=== PATIENT | female | born 1985 | race Caucasian/White ===

== ENCOUNTER 2020-01-04 21:15 | Emergency (ER) | payer BC, SELFPAY ==
--- NOTE | ~2020-01-04 | XR_ITS ---
EXAMINATION: XR chest 2V DATE: 01/04/2020 22:08 INDICATION: Left-sided chest pain TECHNIQUE: PA and lateral views of the chest are obtained. COMPARISON: 01/05/2019 FINDINGS: The lungs are free of acute opacities. There is no pleural effusion or pneumothorax. The ca rdiomediastinal silhouette is normal. The visualized bones and soft tissues are unremarkable. IMPRESSION: 1. No acute cardiopulmonary abnormality. Reviewed, dictated and finalized at location A.
[2020-01-04 21:21] VITALS: BP 123/73; PULSE 66; RESP 14; TEMP 36.8; O2SAT 100
--- NOTE | 2020-01-04 21:25 | ECG_ITS ---
Measurements Intervals [place] Rate: 73 P: 56 LA: 168 QRS: 48 QRSD: 80 T: 58 QT: 380 QTc: 421 Interpretive Statements SINUS RHYTHM NORMAL ECG Electronically Signed On 01-05-2020 6:57:07 CDT by Jose Hooper D.O.
[2020-01-04 21:37] LABS: Basophils Absolute Auto 0.1 K/mm3 (0.0-0.1); Basophils Percent Auto 0.6 % (0.2-1.2); Eosinophils Absolute Auto 0.1 K/mm3 (0-0.3); Eosinophils Percent Auto 1.1 % (0-4.4); Hematocrit 36.9 % (37.0-47.0); Hemoglobin 12.4 g/dL (12.0-15.0); Immature Granulocyte Absolute 0.01 K/mm3 (0.00-0.031); Immature Granulocyte Percent A 0.1 % (0-0.5); Lymphocytes Absolute Auto 3.23 K/mm3 (0.9-3.2); Mean Corpuscular HGB Conc 33.6 g/dl (32-36); Mean Corpuscular Hemoglobin 31.5 pg (26-34); Mean Corpuscular Volume 93.7 fl (80-100); Mean Platelet Volume 10.2 fl (7.4-10.4); Monocytes Absolute Auto 0.7 K/mm3 (0.1-0.6); Monocytes Percent Auto 8.6 % (2.6-8.5); Neutrophils Absolute Auto 4.4 K/mm3 (1.3-6.7); Neutrophils Percent Auto 51.6 % (45.5-73.1); Platelet Count Result 286 k/mm3 (150-375); Red Blood Count 3.94 M/mm3 (4.2-5.4); Red Cell Distribution Width 11.9 % (11.5-14.5); White Blood Count 8.5 K/mm3 (4.5-10.0)
[2020-01-04 21:47] LABS: Prothrombin Time 12.5 Seconds (11.1-14.7)
[2020-01-04 21:48] LABS: Partial Thromboplastin Time 27.8 SECONDS (22.3-36.8)
[2020-01-04 21:49] LABS: Blood Urea Nitrogen 9 mg/dL (7-17); Calcium 9.7 mg/dL (8.4-10.2); Carbon Dioxide 24 mmol/L (22-30); Chloride 102 mmol/L (98-107); Estimated CRCL calculation 66 ml/min; Estimated Glomerular Filt Rate > 60; Glucose 92 mg/dL (65-105); Potassium 3.8 mmol/L (3.4-5.0); Sodium 137 mmol/L (137-145)
[2020-01-04 22:01] LABS: Troponin I < 0.012 ng/mL (0.000-0.034)
[2020-01-04 22:35] VITALS: BP 120/86; PULSE 69; PULSE 72; RESP 18; O2SAT 100
[2020-01-04] MEDS: ASPIRIN 81 MG CHEWABLE TABLET 324 MG PO (22:37)
[2020-01-04 23:01] LABS: D Dimer 0.27 ug/mL (<0.48)
[2020-01-05] VITALS: BP 103/74; PULSE 60; RESP 18; O2SAT 100
--- NOTE | 2020-01-05 00:31 | ED.GENADULT ---
HPI - General Adult General Chief complaint: Chest Pain Stated complaint: L sided cp Time Seen by Provider: 01/04/20 22:15 History of Present Illness HPI narrative: Patient is a 34-year-old female who presents the ER with left-sided chest pain. It is the lateral pectoralis radiating into her axilla and down her medial left upper extremity. Ongoing for 2 days but worse today. Patient has been getting this over the last year typically right before she starts her menstrual period. She did start her period today. Patient reports that she also returned from a vacation to [place] 1 week ago. She is had no lower extremity cramping or swelling. No history of PE. Patient reports she has been seen for these symptoms in the past without diagnosis. Related Data Home Medications Medication Instructions Recorded Confirmed naltrexone 2 mg PO DAILY 01/04/20 01/04/20 Allergies Allergy/AdvReac Type Severity Reaction Status Date / Time No Known Allergies Allergy Verified 01/04/20 21:24 Review of Systems Review of Systems: All systems reviewed & are unremarkable except as noted in HPI and below Constitutional: Constitutional: Denies chills, Denies fever(s) and Denies weakness ENT: Denies nasal congestion and Denies sore throat Cardiovascular: Cardiovascular: Reports chest pain, Denies rapid heart rate and Reports radiating jaw, neck or arm pain Respiratory: Respiratory: Denies cough, Denies dyspnea and Denies wheezing Gastrointestinal: Gastrointestinal: Denies abdominal pain, Reports diarrhea (One episode today), Denies nausea and Denies vomiting Musculoskeletal: Musculoskeletal: Denies back pain, Denies joint swelling and Denies muscle cramps Neurologic: Denies dizziness, Reports focal weakness and Reports numbness (Occasional tingling in the arm with this pain) PMFSH Past Medical History Medical History (Updated 01/05/20 @ 00:37 by Carmine Bateman MD) Interstitial cystitis Kidney stone Surgical History Surgical History (Updated 01/05/20 @ 00:34 by Carmine Bateman MD) History of bladder surgery Social History Social History (Updated 01/05/20 @ 00:34 by Carmine Bateman MD) Smoking status: Never smoker Exam Narrative: Exam Narrative: GENERAL: Well-appearing, well-nourished, and in no acute distress. HEAD: Normocephalic, atraumatic. EYES: PERRL and EOMI. CHEST: Clear to auscultation. No respiratory distress. Mild discomfort over the left upper chest superior to the breast. No palpable spasm. HEART: Regular rate and rhythm. No murmur heard. Normal peripheral pulses. ABDOMEN: Soft, nontender, nondistended. EXTREMITIES: Normal range of motion. No edema. SKIN: Warm, dry, no rash. NEURO: No focal deficits. Alert and oriented x3. Course Course Emergency Course: Unremarkable evaluation. D-dimer negative. Suspect musculoskeletal discomfort. Discussed with patient that she could have a component of thoracic outlet syndrome and to see her PCP. Also recommend that patient start taking anti-inflammatories 3 to 4 days before her period prior to her discomfort starting to see if this helps remedy the situation. Vital Signs Vital signs: Vital Signs Temperature 98.3 F 01/04/20 21:21 Pulse Rate 66 01/04/20 21:21 Respiratory Rate 14 01/04/20 21:21 Blood Pressure 123/73 01/04/20 21:21 Pulse Oximetry 100 01/04/20 21:21 Temperature 98.3 F 01/04/20 21:21 Pulse Rate 72 01/04/20 22:35 Respiratory Rate 18 01/04/20 22:35 Blood Pressure 120/86 01/04/20 22:35 Pulse Oximetry 100 01/04/20 22:35 Medical Decision Making Vital Signs Vital Signs: Vital Signs Temperature 98.3 F 01/04/20 21:21 Pulse Rate 66 01/04/20 21:21 Respiratory Rate 14 01/04/20 21:21 Blood Pressure 123/73 01/04/20 21:21 Pulse Oximetry 100 01/04/20 21:21 Temperature 98.3 F 01/04/20 21:21 Pulse Rate 72 01/04/20 22:35 Respiratory Rate 18 01/04/20 22:35 Blood Pressure
[2020-01-05 00:45] VITALS: BP 106/69; PULSE 67; RESP 20; O2SAT 100
[2020-01-05 00:55] LABS: Troponin I < 0.012 ng/mL (0.000-0.034)
== END 2020-01-05 01:00 | disposition home or self-care (01) ==
PROVIDERS: Emergency Provider Emergency Medicine
DX: R07.89 Other chest pain (principal); Z87.442 Personal history of urinary calculi
CPT/HCPCS: 36415; 71046; 80048; 84484; 85025; 85380; 85610; 85730; 93005; 99284; A9270

== ENCOUNTER → 2020-02-26 10:18 | Outpatient (CLI) | payer BC, SELFPAY ==
--- NOTE | ~2020-02-26 | US_ITS ---
US breast LT complete DATE: 02/26/2020 10:50 INDICATION: Mastodynia TECHNIQUE: Real time and color flow imaging of the complete left breast COMPARISON: None FINDINGS: There is an up to 2 cm left axillary lymph node. There is an up to 9 mm left axillary lymp h node. These lymph nodes appear benign. 9:00 4 cm from nipple: 2 x 3.7 mm circumscribed hypoechoic sold mass without internal vascularity IMPRESSION: BIRADS Category 3: Probably benign RECOMMENDATION: 6 month limited left breast ultrasound follow up Reviewed, dictated and finalized at Location A. Reviewed, dictated and finalized at location A.
== END ==
DX: N64.4 Mastodynia (principal); R92.8 Other abnormal and inconclusive findings on diagnostic imaging of breast
CPT/HCPCS: 76641

== ENCOUNTER 2020-03-13 08:48 | Outpatient (CLI) | payer BC, SELFPAY ==
--- NOTE | 2020-03-13 | ECHO_ITS ---
Patient Info Name: Angelika Gibbons Age: 34 years : 1985 Gender: Female Ht: 62 in Wt: 110 lbs BSA: 1.48 m2 HR: 62 bpm BP: 97 / 67 mmHg Heart Rhythm: Sinus Rhythm Exam Date: 03/13/2020 9:12 AM Exam Location: [facility] Patient Status: Outpatient Admit Date: 03/13/2020 Staff Ordering Physician: PHYSICIAN NOT ON STAFF, NONSTAFF [employer] Trapper: Gracia Patel RDCS Attending Provider: PHYSICIAN NOT ON STAFF, NONSTAFF Exam Type: CA echo doppler color flow Study Info Indications R06.02 - Shortness of breath R07.9 - Chest pain, unspecified Summary 1. Left ventricular chamber dimension is normal. 2. Left ventricular systolic function is normal, estimated at 60-65%. 3. There is no increased left ventricular wall thickness. 4. The left ventricular diastolic function is normal. 5. There is mild tricuspid valve regurgitation. 6. There is mild pulmonic regurgitation. Left Ventricle Left ventricular chamber dimension is normal. Left ventricular systolic function is normal, estimated at 60-65%. There is no increased left ventricular wall thickness. The left ventricular diastolic function is normal. Right Ventricle Right ventricular chamber dimension is normal. Right ventricular systolic function is normal. Left Atria Left atrial chamber dimension is normal. Right Atria Right atrial chamber dimension is normal. Atrial Septum Intact interatrial septum visualized by color flow imaging. Aortic Valve The aortic valve is trileaflet. There is mild aortic valve sclerosis. There is no aortic valve stenosis. There is trace aortic valve regurgitation. Pulmonic Valve The pulmonic valve is normal. There is no pulmonic valve stenosis. There is mild pulmonic regurgitation. Mitral Valve The mitral valve has normal leaflets. There is no mitral valve stenosis. There is trace mitral valve regurgitation. Tricuspid Valve The tricuspid valve leaflets are normal. There is no significant tricuspid valve stenosis. There is mild tricuspid valve regurgitation. No pulmonary hypertension, estimated pulmonary arterial systolic pressure is 27 mmHg. Pericardium/Pleural The pericardium appears normal. There is no pericardial effusion. Inferior Vena Cava Normal inferior vena cava with <50% collapse upon inspiration consistent with elevated right atrial pressure, 10 mmHg. Aorta The aortic root size at the sinus of Valsalva is normal. The prox ascending aorta size is normal. Left Ventricular Outflow Tract Name Value Normal LVOT 2D LVOT Diameter 2.0 cm LVOT Doppler LVOT Peak Gradient 5 mmHg LVOT Mean Gradient 3 mmHg LVOT VTI 21 cm LVOT VTI/AV VTI Ratio 1.0 LVOT Stroke Volume 64 ml LVOT CO 5.0 l/min LVOT CI 3.4 l/min/m2 Mitral Valve Name Value Normal ------
== END 2020-03-13 08:49 | disposition home or self-care (01) ==
DX: R06.02 Shortness of breath (principal)
CPT/HCPCS: 93306

== ENCOUNTER 2022-08-18 14:20 | Emergency (ER) | payer OTHER, SELFPAY ==
--- NOTE | ~2022-08-18 | XR_ITS ---
EXAMINATION: XR abdomen/kub 1V DATE: 08/18/2022 14:52 INDICATION: Right flank pain. Hematuria. TECHNIQUE: A supine view of the abdomen on 2 radiographs was obtained. COMPARISON: None. FINDINGS: There are no dilated loops of bowel. There is a moderate volume of stool in the colon. IMPRESSION: 1. No visible urolithiasis. Reviewed, dictated and finalized at location A. ERSMITH HELPER IMPRESSION: 1. No visible urolithiasis.
[2022-08-18 14:29] VITALS: BP 113/71; PULSE 83; RESP 16; TEMP 36.5; O2SAT 100
--- NOTE | 2022-08-18 15:12 | ED.BACK ---
HPI - Back Pain/Injury General Chief Complaint: Back Pain/Injury Stated Complaint: R LOWER BACK PAIN Time Seen by Provider: 08/18/22 14:35 Source: patient Mode of arrival: ambulatory Limitations: no limitations History of Present Illness HPI Narrative: 36-year-old female presents with complaint of right flank pain starting yesterday. States 2-3 days ago she started a new workout routine. Was unsure if back pain could be related to that. Today she started having pain with urination and pressure. Took a bath yesterday due to back pain. Has history of interstitial cystitis and has a history of getting urinary tract infections after taking baths. Started her period yesterday. No concerns for . History of kidney stones several years ago. Afebrile. No other complaints today. All systems reviewed and negative except as noted above. Related Data Home Medications Medication Instructions Recorded Confirmed escitalopram oxalate 10 mg tablet 10 mg PO DAILY 03/26/21 (Lexapro) Allergies Allergy/AdvReac Type Severity Reaction Status Date / Time No Known Allergies Allergy Verified 08/18/22 14:32 Review of Systems Review of Systems: CONSTITUTIONAL: Denies fever, chills, or sweats. EYES: Denies visual changes, redness, or discharge. ENT: Denies rhinorrhea, congestion, sore throat, or otalgia. CARDIOVASCULAR: Denies chest pain, palpitations, or edema. RESPIRATORY: Denies cough or dyspnea. GASTROINTESTINAL: Denies abdominal pain, nausea, vomiting, or diarrhea. GENITOURINARY: Reports dysuria urgency, pressure, right flank pain. Denies hematuria. SKIN: Denies rash or itching. MUSCULOSKELETAL: Denies back pain, joint pain, or myalgia. NEUROLOGIC: Denies headache, numbness, or weakness. PSYCHIATRIC: Denies anxiety or depression. All other systems reviewed are negative, except as documented in HPI. FORMERLY [facility], [facility] Past Medical History Medical History Interstitial cystitis Kidney stone Surgical History Surgical History History of bladder surgery Family History Family History Father Thyroid disorder Sibling Depression Grandparent Alcoholism Grandparent Alcoholism Cancer Social History Social History Smoking status: Never smoker Alcohol intake: never Substance use: never Substance use type: does not use Comments At time of signature, agree with nursing past medical, surgical, social and family history. There is no relevant family history pertinent to the presenting complaint. Exam Narrative: GENERAL: This is a well-nourished, well-developed patient, in no apparent distress. HEAD: normocephalic, atraumatic. EYES: PERRL. Sclera clear/white. Vision is grossly intact. EARS: External ears normal NOSE: External nose normal NECK: Neck supple, non-tender without lymphadenopathy, masses or thyromegaly. CARDIOVASCULAR: Regular rate and rhythm without murmurs, gallops, or rubs. RESPIRATORY: Clear to auscultation. Breath sounds equal bilaterally. No wheezes, rales, or rhonchi. SKIN: warm, Dry, intact with no suspicious lesions or rash, good texture and turgor. NEURO: awake, alert, and oriented to person, place and time. There were no obvious focal neurologic abnormalities. EXTREMITIES: No joint tenderness, effusion, or edema noted. BACK: Nontender without deformity. No CVA tenderness. Course Course Level of Care: Express Care Visit Vital Signs Vital signs: Vital Signs Temperature 36.5 C 08/18/22 14:29 Pulse Rate 83 08/18/22 14:29 Respiratory Rate 16 08/18/22 14:29 Blood Pressure 113/71 08/18/22 14:29 Pulse Oximetry 100 08/18/22 14:29 Temperature 36.5 C 08/18/22 14:29 Pulse Rate 83 08/18/22 14:29 Respiratory Rate 16 08/18/22 14:29 Bl
== END 2022-08-18 15:10 | disposition home or self-care (01) ==
PROVIDERS: Emergency Provider Nurse Practitioner Family
DX: R30.0 Dysuria (principal); R10.9 Unspecified abdominal pain
CPT/HCPCS: 74018; 81003; 87086; 99213; G0463

== ENCOUNTER 2022-08-24 17:29 | Emergency (ER) | payer OTHER, SELFPAY ==
--- NOTE | ~2022-08-24 | CT_ITS ---
EXAMINATION: CT abdomen pelvis w con DATE: 08/24/2022 21:44 INDICATION: obstipation TECHNIQUE: Computed tomography (CT) of the abdomen and pelvis was performed with 100 mL Omnipaque-350 intravenous contrast. Automated exposure control and iterative reconstruction technique were employe d. The dose-length product was 189.60 mGy-cm. COMPARISON: None. FINDINGS: Lower thorax: Unremarkable Liver: Simple right lobe cyst. Biliary/Gallbladder: Gallbladder is normal. No bile duct dilation. Pancreas: No mass or duct dilation. Spleen: Normal. Adrenals:No mass. Kidneys: Subcentimeter bilateral hypodensities, too small to characterize but most likely representin g cysts. Bilateral punctate nonobstructing calculi. No hydronephrosis. GI tract: Distal esophageal and gastric wall edema. No small or large bowel dilation. Appendix not vi sualized. Mesentery/Peritoneum: No ascites, mass, or free air. Retroperitoneum: No mass. Pelvis: Pelvic organs are within normal limits. Soft Tissues: Soft tissues and body wall unremarkable. Bones: No acute osseous finding. IMPRESSION: Esophagitis/gastritis. Otherwise no acute abdominal pelvic process detected. Reviewed, dictated and finalized at location K. V BLOCK SAW OPERATOR
[2022-08-24 17:35] VITALS: BP 133/73; PULSE 91; RESP 20; TEMP 36.3; O2SAT 100
[2022-08-24 19:05] LABS: Appearance Urine Slightly Cloudy (Clear); Bilirubin Urine Negative (Negative); Blood Urine Trace-intact (Negative); Color Urine Yellow (Yellow); Glucose Urine UA Negative (Negative); Ketones Urine Trace mg/dL (Negative); Leukocyte Esterase Ur Trace LEU/UL (Negative); Nitrate Urine Negative (Negative); Protein Urine Negative (Negative); Urobilinogen Urine 0.2 mg/dL (<2.0)
[2022-08-24] MEDS: KETOROLAC 30 MG/ML VIAL (*BKC) IV PUSH (19:05)
--- NOTE | 2022-08-24 19:13 | ED.BACK ---
HPI - Back Pain/Injury General Chief Complaint: Back Pain/Injury Stated Complaint: LOWER BACK PAIN X1WK Time Seen by Provider: 08/24/22 18:18 History of Present Illness HPI Narrative: This is a 36-year-old female with past medical history of interstitial cystitis presents with chief complaint of lower back pain x1 week. She was seen in urgent care a week ago for the same and had a negative UA and a negative KUB. She has additional complaints of constipation and states this has been present for the past week as well. Denies any specific back injury. She does endorse doing some new workouts at the gym. Denies any bowel or bladder dysfunction. Denies any saddle anesthesia. No red flag back symptoms or signs. She has additional concerns with constipation and obstipation for about a week. She states that the only time she is able to have a bowel movement is when she uses her suppository. Denies any abdominal pain, fevers, chills, vomiting. Related Data Home Medications Medication Instructions Recorded Confirmed escitalopram oxalate 10 mg tablet 10 mg PO DAILY 03/26/21 (Lexapro) Allergies Allergy/AdvReac Type Severity Reaction Status Date / Time No Known Allergies Allergy Verified 08/18/22 14:32 Review of Systems Review of Systems: CONSTITUTIONAL: Denies fever, chills, or sweats. EYES: Denies visual changes, redness, or discharge. ENT: Denies rhinorrhea, congestion, sore throat, or otalgia. CARDIOVASCULAR: Denies chest pain, palpitations, or edema. RESPIRATORY: Denies cough or dyspnea. GASTROINTESTINAL: Endorses constipation. Denies abdominal pain, nausea, vomiting, or diarrhea. GENITOURINARY: Denies dysuria or hematuria. SKIN: Denies rash or itching. MUSCULOSKELETAL: Endorses low back pain. Denies joint pain, or myalgia. NEUROLOGIC: Denies headache, numbness, dizziness, or weakness. PSYCHIATRIC: Denies anxiety or depression. [facility] Past Medical History Medical History Interstitial cystitis Kidney stone Surgical History Surgical History History of bladder surgery Family History Family History Father Thyroid disorder Sibling Depression Grandparent Alcoholism Grandparent Alcoholism Cancer Social History Social History Smoking status: Never smoker Alcohol intake: never Substance use: never Substance use type: does not use Exam Narrative: GENERAL: Well-appearing, well-nourished, and in no acute distress. HEAD: Normocephalic, atraumatic. EYES: PERRLA and EOMI. ENT: Nares clear, no rhinorrhea or epistaxis. Mucous membranes moist. Oropharynx without tonsillar hypertrophy exudate or other lesions. NECK: Supple. No adenopathy or masses. CHEST: No respiratory distress. Clear to auscultation. No wheezes rales or rhonchi HEART: Regular rate and rhythm. No murmur heard. Normal peripheral pulses. ABDOMEN: Soft, nontender, nondistended, normal active bowel sounds. EXTREMITIES: Normal range of motion. No edema. Flexion of the spine reproduces by pain SKIN: Warm, dry, no rash. NEURO: Alert and oriented x3. No focal deficits. 5 out of 5 strength and sensation in upper and lower extremities PSYCH: Normal mood and affect. Course Course Emergency Course: 2199: Patient pain improved greatly Vital Signs Vital signs: Vital Signs Temperature 97.4 F L 08/24/22 17:35 Pulse Rate 91 08/24/22 17:35 Respiratory Rate 20 08/24/22 17:35 Blood Pressure 133/73 08/24/22 17:35 Pulse Oximetry 100 08/24/22 17:35 Oxygen Delivery Room Air 08/24/22 17:35 Temperature 97.2 F L 08/24/22 21:50 Pulse Rate 79 08/24/22 21:50 Respiratory Rate 18 08/24/22 21:50 Blood Pressure 107/63 08/24/22 22:02 Pulse Oximetry 100 08/24/22 21:50 Oxygen Delivery Ro
[2022-08-24 19:16] LABS: Bacteria Urine Trace /hpf; Mucus Urine Rare /lpf; RBC Urine 0-2 /hpf (0-2); Squamous Epithelial Cell Urine Many /hpf (Few)
[2022-08-24 19:17] LABS: Basophils Percent Auto 0.3 % (0.2-1.2); Eosinophils Absolute Auto 0.1 K/mm3 (0-0.3); Hematocrit 37.9 % (37.0-47.0); Hemoglobin 12.7 g/dL (12.0-15.0); Immature Granulocyte Absolute 0.02 K/mm3 (0.00-0.031); Immature Granulocyte Percent A 0.2 % (0-0.5); Lymphocytes Absolute Auto 2.33 K/mm3 (0.9-3.2); Lymphocytes Percent Auto 26.1 % (18.3-44.2); Mean Corpuscular HGB Conc 33.5 g/dl (32-36); Mean Corpuscular Volume 92.4 fl (80-100); Mean Platelet Volume 10.5 fl (7.4-10.4); Monocytes Absolute Auto 0.6 K/mm3 (0.1-0.6); Monocytes Percent Auto 6.4 % (2.6-8.5); Neutrophils Absolute Auto 5.9 K/mm3 (1.3-6.7); Platelet Count Result 304 k/mm3 (150-375); White Blood Count 8.9 K/mm3 (4.5-10.0)
[2022-08-24 19:25] LABS: Add Urine Microscopic? YES
[2022-08-24 21:18] LABS: Alanine Aminotransferase 15 U/L (6-35); Albumin Level 5.2 g/dL (3.5-5.1); Alkaline Phosphatase 87 U/L (38-126); Anion Gap 11 mmol/L (8-16); Aspartate Amino Transferase 21 U/L (14-36); Bilirubin,Total 0.5 mg/dL (0.2-1.3); Blood Urea Nitrogen 10 mg/dL (7-17); Calcium 8.8 mg/dL (8.4-10.2); Carbon Dioxide 25 mmol/L (22-30); Chloride 103 mmol/L (98-107); Estimated CRCL calculation 86 ml/min; Estimated Glomerular Filt Rate > 60; Glucose 78 mg/dL (65-110); Potassium 3.8 mmol/L (3.4-5.0); Sodium 139 mmol/L (137-145)
[2022-08-24 21:50] VITALS: BP 94/48; PULSE 79; RESP 18; TEMP 36.2; O2SAT 100
[2022-08-24 22:02] VITALS: BP 107/63
== END 2022-08-24 22:30 | disposition home or self-care (01) ==
PROVIDERS: Emergency Provider Physician Assistant
DX: M54.50 Low back pain, unspecified (principal); K59.00 Constipation, unspecified; N30.10 Interstitial cystitis (chronic) without hematuria; Z87.442 Personal history of urinary calculi
CPT/HCPCS: 36415; 74177; 80053; 81001; 81025; 85025; 96374; 99284; J1885; Q9967

== ENCOUNTER 2022-09-27 11:54 | Emergency (ER) | payer OTHER, SELFPAY ==
[2022-09-27 12:02] VITALS: BP 112/74; PULSE 83; RESP 16; TEMP 36.9; O2SAT 100
--- NOTE | 2022-09-27 12:09 | ED.URI ---
HPI - URI/Sore Throat General Chief Complaint: Upper Respiratory Infection Stated Complaint: sore throat Time Seen by Provider: 09/27/22 12:09 History of Present Illness HPI Narrative: 37 y/o female presented for c/o sore throat for about 2 weeks. At the onset she was prescribed amox by pcp, due to known exposure to strep. States it caused severe GI upset therefore she stopped the abx after about 7 days. States the past few days the pain has worsened. Also with mild sinus congestion and drainage. Not taking anything for symptoms. Denies difficulty maintaining secretions, sob, wheezing, n/v/d/f/c. Related Data Home Medications Medication Instructions Recorded Confirmed escitalopram oxalate 10 mg tablet 10 mg PO DAILY 03/26/21 (Lexapro) Allergies Allergy/AdvReac Type Severity Reaction Status Date / Time No Known Allergies Allergy Verified 08/18/22 14:32 Review of Systems Review of Systems: CONSTITUTIONAL: Denies body aches, fever, chills, or sweats. EYES: Denies visual changes, redness, or discharge. ENT: Denies dysphonia, otalgia. CARDIOVASCULAR: Denies chest pain, palpitations, or edema. RESPIRATORY: Denies dyspnea. GASTROINTESTINAL: Denies abdominal pain, nausea, vomiting, or diarrhea. SKIN: Denies rash, itching, or wounds. MUSCULOSKELETAL: Denies back pain, joint pain, or myalgia. NEUROLOGIC: Denies headache PMFSH Past Medical History Medical History Interstitial cystitis Kidney stone Surgical History Surgical History History of bladder surgery Family History Family History Father Thyroid disorder Sibling Depression Grandparent Alcoholism Grandparent Alcoholism Cancer Social History Social History Smoking status: Never smoker Alcohol intake: never Substance use: never Substance use type: does not use Exam Narrative: GENERAL: mildly Ill-appearing, no acute distress. EYES: conjunctivae clear ENT: Mucous membranes moist. TM pearly alvarado with normal light reflex bilaterally; no tragal tenderness. Oropharynx erythematous without lesions. Tonsils enlarged 2+ without exudate. No drooling, no hoarseness, no trismus, uvula midline. No tripod positioning, hot potato voice, or soft palate swelling. NECK: Supple. No lymphadenopathy CHEST: Clear to auscultation, breath sounds equal. No respiratory distress, speaks in full sentences. HEART: Regular rate and rhythm. No murmur heard. SKIN: Warm, dry, no rash. NEURO: Alert and oriented x3. Course Course Emergency Course: Patient is aware of diagnosis, understands and agrees to treatment plan. Anticipatory guidance given. Patient agrees to follow-up as directed and is aware of reasons to seek care at the emergency department. Portions of this record may have been created with voice recognition software Level of Care: Express Care Visit Vital Signs Vital signs: Vital Signs Temperature 98.4 F 09/27/22 12:02 Pulse Rate 83 09/27/22 12:02 Respiratory Rate 16 09/27/22 12:02 Blood Pressure 112/74 09/27/22 12:02 Pulse Oximetry 100 09/27/22 12:02 Temperature 98.4 F 09/27/22 12:02 Pulse Rate 83 09/27/22 12:02 Respiratory Rate 16 09/27/22 12:02 Blood Pressure 112/74 09/27/22 12:02 Pulse Oximetry 100 09/27/22 12:02 MDM - URI/Sore Throat MDM Narrative Medical decision making narrative: strep result reviewed with pt.will send Zpack as pt could not tolerate Amox. Advise supportive treatments. Patient is appropriate for outpatient treatment and follow-up. Differential Diagnosis Differential diagnosis: Likely upper respiratory infection, viral infection and pharyngitis Lab Data Labs: Strep Screen Positive Group A Strep
== END 2022-09-27 12:18 | disposition home or self-care (01) ==
PROVIDERS: Emergency Provider Nurse Practitioner Family
DX: J02.0 Streptococcal pharyngitis (principal)
CPT/HCPCS: 87880; 99213; G0463

== ENCOUNTER 2022-10-14 18:21 | Emergency (ER) | payer OTHER, SELFPAY ==
[2022-10-14 18:31] VITALS: BP 109/73; PULSE 81; RESP 16; TEMP 36.8; O2SAT 100
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
--- NOTE | 2022-10-14 18:44 | ECG_ITS ---
Measurements Intervals [place] Rate: 71 P: 46 AR: 145 QRS: 66 QRSD: 82 T: 71 QT: 367 QTc: 399 Interpretive Statements SINUS RHYTHM COMPARED TO ECG 01/04/2020 21:28:33 NO SIGNIFICANT CHANGES Electronically Signed On 10-15-2022 10:36:23 CDT by Laurel Aguilar M.D.
--- NOTE | 2022-10-14 19:03 | PC.NURSE ---
REPORT CALLED TO LEONARDO CLARKE AT [facility], PT IS ATTEMPTING TO CONTACT A RIDE FOR TRANSPORT TO ER. C COLLAR WAS APPLIED.
[2022-10-14 19:11] VITALS: RESP 18; O2SAT 99
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
== END 2022-10-14 19:51 | disposition short-term general hospital (02) ==
PROVIDERS: Emergency Provider Nurse Practitioner
DX: M54.2 Cervicalgia (principal); V49.40XA Driver injured in collision with unspecified motor vehicles in traffic accident, initial encounter
CPT/HCPCS: 87081; 87880; 93005; 99213; G0463; L0140

== ENCOUNTER 2022-10-14 20:10 | Emergency (ER) | payer OTHER, SELFPAY ==
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
[2022-10-14 20:12] VITALS: BP 122/84; PULSE 70; RESP 18; TEMP 36.4; O2SAT 100
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
[2022-10-14 22:42] VITALS: BP 109/76; PULSE 78; RESP 16; O2SAT 99
[2022-10-14] MEDS: KETOROLAC 30 MG/ML VIAL (*BKC) IM (22:46)
== END 2022-10-14 22:54 | disposition home or self-care (01) ==
LOC: ANHED 22:40
PROVIDERS: Emergency Provider Physician Assistant
DX: S19.9XXA Unspecified injury of neck, initial encounter (principal); S09.90XA Unspecified injury of head, initial encounter; V49.40XA Driver injured in collision with unspecified motor vehicles in traffic accident, initial encounter; N30.10 Interstitial cystitis (chronic) without hematuria; Z87.442 Personal history of urinary calculi
CPT/HCPCS: 70450; 72125; 96372; 99284; J1885

== ENCOUNTER 2023-11-05 05:50 | Emergency (ER) | payer OTHER, SELFPAY ==
[2023-11-05] VITALS (7 sets, daily range): BP systolic 96–109; BP diastolic 61–71; PULSE 67–81; RESP 14–22; TEMP 36.8; O2SAT 100
--- NOTE | ~2023-11-05 | XR_ITS ---
EXAMINATION: XR chest 2V 11/05/2023 06:33 INDICATION: Left-sided chest pain and racing heart PROCEDURE: 2 view chest COMPARISON: 01/04/2020 FINDINGS: The lungs are clear. The cardiomediastinal silhouette is within normal limits. There are no pleural effusions. There is no pneumothorax suspected. IMPRESSION: 1: NO ACUTE CARDIOPULMONARY DISEASE. Reviewed, dictated and finalized at location B.
--- NOTE | 2023-11-05 06:02 | ECG_ITS ---
SEE SCANNED COPY FOR CONFIRMED REPORT MTDD
[2023-11-05] MEDS: ASPIRIN 81 MG CHEWABLE TABLET 324 MG PO (06:17)
[2023-11-05 06:25] LABS: Basophils Percent Auto 0.6 % (0.2-1.2); Eosinophils Absolute Auto 0.1 K/mm3 (0-0.3); Eosinophils Percent Auto 1.2 % (0-4.4); Hematocrit 38.7 % (37.0-47.0); Hemoglobin 12.7 g/dL (12.0-15.0); Immature Granulocyte Absolute 0.01 K/mm3 (0.00-0.031); Immature Granulocyte Percent A 0.1 % (0-0.5); Immature Platelet Fraction Pct 7.4 % (0.9-11.2); Lymphocytes Absolute Auto 2.43 K/mm3 (0.9-3.2); Lymphocytes Percent Auto 36.1 % (18.3-44.2); Mean Corpuscular HGB Conc 32.8 g/dl (32-36); Mean Corpuscular Hemoglobin 30.2 pg (26-34); Mean Corpuscular Volume 91.9 fl (80-100); Mean Platelet Volume 11.4 fl (7.4-10.4); Monocytes Absolute Auto 0.7 K/mm3 (0.1-0.6); Monocytes Percent Auto 9.8 % (2.6-8.5); Neutrophils Absolute Auto 3.5 K/mm3 (1.3-6.7); Neutrophils Percent Auto 52.2 % (45.5-73.1); Platelet Count Result 231 k/mm3 (150-375); Red Blood Count 4.21 M/mm3 (4.2-5.4); Red Cell Distribution Width 12.8 % (11.5-14.5); White Blood Count 6.7 K/mm3 (4.5-10.0)
[2023-11-05 06:35] LABS: Alanine Aminotransferase 13 U/L (6-35); Albumin Level 5.1 g/dL (3.5-5.1); Alkaline Phosphatase 76 U/L (38-126); Anion Gap 8 mmol/L (4-12); Aspartate Amino Transferase 21 U/L (14-36); Bilirubin,Total 0.5 mg/dL (0.2-1.3); Blood Urea Nitrogen 7 mg/dL (7-17); Calcium 9.5 mg/dL (8.4-10.2); Carbon Dioxide 24 mmol/L (22-30); Chloride 105 mmol/L (98-107); Estimated CRCL calculation 74 ml/min; Estimated Glomerular Filt Rate > 60; Glucose 94 mg/dL (65-110); INR 0.9; Lipase 114 U/L (23-300); Partial Thromboplastin Time 21.2 Seconds (22.3-36.8); Prothrombin Time 12.8 Seconds (11.1-14.7); Sodium 137 mmol/L (137-145)
[2023-11-05 06:47] LABS: Troponin I < 0.012 ng/mL (0.000-0.034)
--- NOTE | 2023-11-05 07:17 | ED.CHESTPAIN ---
HPI - Chest Pain General Chief Complaint: Chest Pain Stated Complaint: chest pain Time Seen by Provider: 11/05/23 06:43 History of Present Illness HPI narrative: Patient is a 38-year-old female who presents to the emergency department this morning complaining chest pressure. Patient states that the pain started yesterday around 8:00 p.m. and does not describe it as a pain but more so of some pressure to the left side of her chest. Patient states that around the same time she had a pulse ox L which she use to monitor her heart rate and she noticed that her heart rate would range anywhere from 60-90 randomly. Patient admits that her heart rate never exceeded 100. Patient states that she was also feeling some palpitations and admits that the palpitations were bothering her more than actual pain. Patient admits that this did keep her up overnight. She denies any history of coronary artery disease and states that she is currently in the process of getting worked up for Jailene-Danlos. Patient did have an echocardiogram performed approximately 6 years ago which revealed mild mitral regurgitation. No additional symptoms or concerns at this time. Related Data Home Medications Medication Instructions Recorded Confirmed escitalopram oxalate 10 mg tablet 10 mg PO DAILY 03/26/21 10/14/22 (Lexapro) Allergies Allergy/AdvReac Type Severity Reaction Status Date / Time No Known Allergies Allergy Verified 11/05/23 06:02 Review of Systems Review of Systems: All systems are reviewed and are negative unless stated otherwise in the HPI. [facility] Past Medical History Medical History Interstitial cystitis Kidney stone Surgical History Surgical History History of bladder surgery Family History Family History Father Thyroid disorder Sibling Depression Grandparent Alcoholism Grandparent Alcoholism Cancer Social History Social History Smoking status: Never smoker Alcohol intake: never Substance use: never Substance use type: does not use Exam Narrative: General: Alert, awake, afebrile, anxious. HEENT: PERRL, no rhinorrhea, no post nasal drip, oropharynx clear. Neck: Trachea midline, no JVD, no lymphadenopathy. Cardiovascular: Regular rate and rhythm, no murmurs, rubs or gallops, no peripheral edema. Respiratory: Clear to auscultation bilaterally, no tachypnea, no wheezing, no rhonchi, no rubs, no respiratory distress. Abdomen: Soft, nontender, nondistended, no rebound, no guarding, no peritoneal signs. Musculoskeletal: No joint swelling or deformity, normal muscle tone. Skin: No rashes or petechia, no signs of infection. Psychiatric: Alert and oriented, normal behavior and judgment for situation. Neurological: Alert and oriented to person, place, and time. Follows all commands. No focal deficits, speech is clear and fluent. Course Vital Signs Vital signs: Vital Signs Temperature 98.2 F 11/05/23 05:56 Pulse Rate 72 11/05/23 05:56 Respiratory Rate 14 11/05/23 05:56 Blood Pressure 96/71 L 11/05/23 05:56 Pulse Oximetry 100 11/05/23 05:56 Oxygen Delivery Room Air 11/05/23 05:56 Temperature 98.2 F 11/05/23 05:56 Pulse Rate 78 11/05/23 07:15 Respiratory Rate 17 11/05/23 06:45 Blood Pressure 109/66 11/05/23 06:45 Pulse Oximetry 100 11/05/23 06:45 Oxygen Delivery Room Air 11/05/23 05:56 MDM - Chest Pain MDM Narrative Medical decision making narrative: The patient was evaluated by myself in the emergency department. History is obtained from patient who is an independent historian and physical exam was performed. External medical records were reviewed at this time. IV was established and pertinent tests were ordered. Patient's initial b
== END 2023-11-05 08:13 | disposition home or self-care (01) ==
PROVIDERS: Emergency Provider Emergency Medicine; PCP Physician Assistant
DX: R07.89 Other chest pain (principal); R00.2 Palpitations; N30.10 Interstitial cystitis (chronic) without hematuria; Z87.442 Personal history of urinary calculi
CPT/HCPCS: 36415; 71046; 80053; 83690; 83735; 84484; 85025; 85055; 85610; 85730; 93005; 99284; A9270

== ENCOUNTER 2024-05-01 08:20 | Outpatient (CLI) | payer OTHER, SELFPAY ==
--- NOTE | ~2024-05-01 | MM_ITS ---
EXAMINATION: MM screening cas BI w sd HISTORY: Screening TECHNIQUE: Craniocaudal and mediolateral oblique 3-D tomosynthesis images were obtained and synthetic 2-D images were generated. CAD analysis was submitted and interpreted. COMPARISON: No prior mammogram is available for comparison at this institution. BREAST PARENCHYMAL COMPOSITION: Dense: The breasts are extremely dense, which lowers the sensitivity of mammography.. FINDINGS: There is no evidence of suspicious mass, calcification, or architectural distortion to sugg est malignancy in either breast. There has been no suspicious interval change. IMPRESSION: 1. No mammographic evidence of malignancy. 2. Recommend routine screening mammography in one year. BI-RADS Category 1: Negative Reviewed, dictated and finalized at location B.
== END 2024-05-01 08:21 | disposition home or self-care (01) ==
LOC: ANHIMG 08:23
PROVIDERS: PCP Physician Assistant; Visit Provider Obstetrics & Gynecology
DX: Z12.31 Encounter for screening mammogram for malignant neoplasm of breast (principal)
CPT/HCPCS: 77063; 77067

== ENCOUNTER 2024-10-01 11:35 | Emergency (ER) | payer OTHER, SELFPAY ==
--- NOTE | ~2024-10-01 | XR_ITS ---
CHEST RADIOGRAPH, PA AND LATERAL CLINICAL HISTORY: CP . COMPARISON: 11/05/2023 TECHNIQUE: PA and lateral views of the chest. FINDINGS The cardiomediastinal silhouette is unremarkable. The lungs are clear. Visualized osseous structures and soft tissues are unremarkable. IMPRESSION: No focal infiltrate or effusion. Reviewed, dictated and finalized at location A.
[2024-10-01 11:36] VITALS: BP 115/85; PULSE 71; RESP 16; TEMP 36.2; O2SAT 100
--- OUTSIDE RECORDS SUMMARY | 2024-10-01 11:38 | XMS_ITS | Encounter Summary ---
Author Organization [facility] Address [address] [place] [address] Care Team Providers Care Hide Mill Worker Name Role Phone Unavailable Primary Care Provider Unavailabl e Reason for Referral * Consultation (Routine) - Closed Specialty Diagnoses / Procedures Referred By Contac t Referred To Contact Dermatology Diagnoses Multiple atypical skin moles Nevaeh Troncoso MD [address] [address] [facility] [address] [place] [address] Referral ID Status Reason Start Date Expiration Date V isits Requested Visits Authorized [id number] Closed Specialty Services Required 05/17/2024 05/17/2025 [address] [facility] Encounter Details Date Type Department Care Team (Latest Contact Info) Description 05/17/2024 Transcribe Orders [facility] - Centralized [place] [address] Nevaeh Troncoso MD [address] [address] Multiple atypical skin moles Social History Tobacco Use Types Packs/Day Years Used Date Smoking Tobacco: Never Assessed Sex and Gender Information Value Date Recorded Sex Assigned at Not on file Gender Identity Not on file Sexual Orientation Not on file documented as of this encounter Plan of Treatment Upcoming Encounters Date Type Department Care Team (Late st Contact Info) Description 11/07/2024 1:00 PM CDT Office Visit [facility] - Rheumatology [facility] Yary Shahid [place] [phone] Sammy Cox MD [address] [place] [phone] Scheduled Referrals Name Type Priority Associated Diagnoses Order Schedule AMB REFERRAL TO DERMATOLOGY Outpatient Referral Routine Multiple atypical skin moles 1 Occurrences starting 05/17/2024 until 05/17/2025 documented as of this encounter Visit Diagnoses Diagnosis Multiple atypical skin moles- Primary documented in this encounter
--- OUTSIDE RECORDS SUMMARY | 2024-10-01 11:38 | XMS_ITS | Clinical Summary ---
Author Organization [facility] Address [address] [place] [address] Care Team Providers Care Classroom Assistant Name Role Phone Donta Martinez Primary Care Provider [phone] Rachel Longo MD Unavailable [phone] Allergies No known active allergies Medications No known medications Active Problems Problem Noted Date Diagnosed Date Other chest pain 02/24/2024 Rectocele 05/01/2017 Incontinence of urine 02/08/2017 Hx of Toño thyroiditis 10/27/2016 Chronic interstitial cystitis 11/25/2013 Overview (10/16/2016): CHR INTERSTIT CYSTITIS DANII (generalized anxiety disorder) 03/26/2012 Hyperesthesia 08/05/2011 Immunizations Immunization Administration Dates Next Due DTP 11/27/1986, 5,1984,10/28 DTaP 5 Pertussis 09/20/1989 HPV, Quadrivalent 07/14/2007 Hep B Vaccine 07/18/2007,02/21/2007,11/06/2006 IPV 09/20/1989, 7,03/16/1985,01/05,1984 MMR 07/29/1992,01/04/1986 Meningococcal Polysaccharide (Menomune) 11/06/2006 Tdap 07/02/2005 Surgical History Surgery Date Site/Laterality Comments OTHER SURGICAL HISTORY 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 ozuna OTHER SURGICAL HISTORY 02 - ENT: Dr Cat OTHER SURGICAL HISTORY Jaw realignment repair: 1998; MANDIBLE SURGERY Jaw Surgery - 1998 for jaw reallignment w/ residual left trigeminal LOS (Added by TW Conv) MASTOID SURGERY Mastoidectomy - L, 08/2010 for cholesteoma (Added by Conv) Medical History Medical History Date Comments Hx Other Medical 1990 Chicken Pox Hx Other Medical Blood Type: A- Hx Other Medical HPV Hx Other Medical staph - carbond khadar Hx Other Medical Cholesteotoma r emoved L ear with TM graft Hx Other Medical - ENT Hx Other Medical -caponizer Hx Other Medical Jaw realignment repair High cholesterol Thyroid disease Chest pain Family History Medical History Relation Name Comments Heart disease Father Coronary artery disease Maternal Grandmother Coronary artery disease; /Coronary Artery Disease - (Added by Conv) Emphysema Maternal Grandmother emphyse ma; Heart disease Maternal Grandmother Breast cancer Mother Hypertension Mother Hypertension; / Hypertension - (Added by Conv) Migraines Mother Migraine Headac he - (Added by Conv) Sleep apnea Mother Obstructive Sle ep Apnea - (Added by Conv) Breast cancer Paternal Grandmother Cancer -breast; /Breast Cancer - (Added by Conv) Relation Name Status Comments Father Alive Maternal Grandmother Mother Alive Paternal Grandmother Social History Tobacco Use Types Packs/Day Years Used Date Smoking Tobacco: Never Smokeless Tobacco: Never Alcohol Use Standard Drinks/Week Comments No 0 (1 standard drink = 0.6 oz pur e alcohol) Comments Unknown Sex and Gender Information Value Date Recorded Sex Assigned at Not on file Legal Sex 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 Gender Identity Not on file Sexual Orientation Not on file Obstetrics History Para Term AB IAB SAB Ectopic Multiple Livin g Live Births 1 1 1 1 1 Date Outcome GA Total Labor Labor/2nd/3rd Weight Sex Type Anes PTL Carolyn A1 A5 Name Clin Term Living Last Filed Vital Signs Vital Sign Reading Time Taken Comments Blood Pressure 96/58 02/24/2024 8:52 AM CDT Pulse 74 02/24/2024 8:52 AM CDT Temperature - - Respiratory Rate - - Oxygen Saturation 99% 02/24/2024 8:52 AM CDT Inhaled Oxygen Concentration - - Weight 49.3 kg (108 lb 9.6 oz) 02/24/2024 8:52 A M CDT Height 154.9 cm (5' 1 ) 02/24/2024 8:52 AM CDT Body Mass Index 20.52 02/24/2024 8:52 AM CDT Plan of Treatment Health Maintenance Due Date Last Done Comments Breast Cancer Screening-Mammogram 1984 Cervical Cancer Screening 1984 Depression Screening 1984 Hepatitis C Screening 1984 Varicella Vaccines (1 of 2 - 13+ 2-dose series) 1997 Regular Well Visit/Exam 18-64 2002 HPV Vaccines (3 - 3-dose series) 10/04/2008 07/12/2008, 07/14/2007 DTaP/Tdap/Td Vaccine (7 - Td or Tdap) 07/02/2015 07/02/2005, 09/20/1989, 11/27/1986, Additional history exists Covid-19 Vaccine ( season) 2024 06/17/2021, 11/01/2020, 10/04/2020 Influenza Vaccine (#1) 2024 04/20/2011 Hepatitis B Screening Completed 07/18/2007 , 02/21/2007, 11/06/2006 Pneumococcal vaccine <65 Aged Out No longer eligible based on patient's age to complete this topic Insurance [facility] [employer] Member Subscriber Plan / Payer (Ef fective 2017-Present) Name:Angelika Gibbons Relation to Subscriber:Self Name:Angelika Gibbons Payer ID:[id number] (NAIC) Type:[place] Address: [facility] [id number] [address] [facility] Care Teams Classroom Assistant Relationship Specialty Start Date End Date Donta Martinez PA [address] [place] [address] PCP - General Family Practice 12/29/23 Rachel Longo MD [address] [place] [address] Referring Physician Obstetrics and Gynecology 12/29/23
--- OUTSIDE RECORDS SUMMARY | 2024-10-01 11:38 | XMS_ITS | Clinical Summary ---
Author Organization [facility] Address [facility] [place] [address] Care Team Providers Care Assistant To The Ceo Name Role Phone Nevaeh Troncoso MD Primary Care Provider [phone] Allergies No known active allergies Medications FLUoxetine (PROZAC) 10 MG tabletIndication s:DANII (generalized anxiety disorder) Take 1 tablet (10 mg total) by mouth daily. 90 tablet 05/11/2024 Active omeprazole (PRILOSEC) 40 MG capsuleIndicatio ns:Gastroesophag eal reflux disease without esophagitis Take 1 capsule (40 mg total) by mouth daily. 90 capsule 05/11/2024 Active Immunizations Name Administration Dates Next Due Tdap (Generic) 12/01/2016 Family History Medical History Relation Comments Depression Brother Heart Disease Father Cancer Mother Hypertension Mother Depression Sister Asthma Son Relation Status Comments Brother Father Mother Sister Son Social History Tobacco Use Types Packs/Day Years Used Date Smoking Tobacco: Never Smokeless Tobacco: Never Tobacco Cessation:Counseling Given: No Alcohol Use Standard Drinks/Week Comments Not Currently 0 (1 standard drink = 0.6 oz pur e alcohol) AUDIT-C Answer Date Recorded Q1: How often do you have a drink containing alc ohol? Monthly or less 05/11/2024 Q2: How many drinks containi ng alcohol do you have on a typical day when you are drinking? 3 or 4 05/11/2024 Q3: How often do you have si x or more drinks on one occasion? Never 05/11/2024 PHQ-2 Answer Date Recorded Patient Health Questionnaire-2 Score 2 05/11/2024 Comments No Sex and Gender Information Value Date Recorded Sex Assigned at Not on file Legal Sex Female 10:56 AM CDT Gender Identity Not on file Sexual Orientation Not on file Last Filed Vital Signs Vital Sign Reading Time Taken Comments Blood Pressure 104/66 05/11/2024 9:43 AM CDT Pulse 65 05/11/2024 9:43 AM CDT Temperature 36.2 C (97.1 F) 05/11/2024 9:43 AM CDT Respiratory Rate 18 05/11/2024 9:43 AM CDT Oxygen Saturation 100% 05/11/2024 9:43 AM CDT Inhaled Oxygen Concentration - - Weight 49.8 kg (109 lb 12.8 oz) 05/11/2024 9:43 AM CDT Height 154.9 cm (5' 1 ) 05/11/2024 9:43 AM CDT Body Mass Index 20.75 05/11/2024 9:43 AM CDT Plan of Treatment Health Maintenance Due Date Last Done Comments Cervical Cancer Screening Pap Smear (Age 30 to 64) Every 3 Years 1984 HPV Vaccines (3 - 3-dose series) 10/04/2008 07/12/2008, 07/14/2007 COVID-19 Vaccine ( season) 2024 06/17/2021, 11/01/2020, 10/04/2020 PHQ-2 (Physician [place]) 07/12/2024 05/11/2024 Annual Physical 05/11/2025 05/11/2024 Influenza Adult (#1) 2025 04/20/2011 Postpon ed from 04/11/2024 (Patient Refused) Mammogram Screening 05/01/2026 05/01/2024, 0 DTaP, Tdap and Td Vaccines (8 - Td or Tdap) 12/01/2026 12/01/2016, 07/02/2005, 09/20/1989, Additional history exists Cervical Cancer Screening Pap with HPV Testing (Age 30 to 64) Every 5 Years 12/28/2028 12/29/2023 Cervical Cancer Screening with HPV 12/28/2028 Meningococcal Vaccine Aged Out 11/06/2006 No phu karan eligible based on patient's age to complete this topic Hepatitis B Vaccines Completed 07/18/2007, 02/21/2007, 11/06/2006 Hepatitis C Completed 05/11/2024 Meningococcal B Vaccine Aged Out No l onger eligible based on patient's age to complete this topic Pneumococcal Vaccine: Pediatrics (0 to 5 Years) and At-Risk Patients (6 to 64 Years) Aged Out No longer eligible based on patient's age to complete this topic RSV Immunizations Under 20 Months Aged Out No longer eligible based on patient's age to complete this topic Procedures Procedure Name Priority Date/Time Associated Diagnosis Comments HEPATITIS C ANTIBODY Routine 05/11/2024 11:25 AM CDT Annual physical exam General medical exam Encounter for hepatitis C screening test for low risk patient MAMMOGRAM GENERIC (SCAN ORDER) 05/01/2024 OUTSIDE CYTOPATH CERV/VAG INTERPRET (PAP) 12/29/2023 from Last 3 Months or Most Recently Relevant to Health Maintenance Results * HEPATITIS C ANTIBODY (05/11/2024 11:25 AM CDT) HEPATITIS C AB NON-REACTI VE NON-REACT JEFF 05/12/2024 6:30 PM CDT [facility] Comment: ANTIBODIES TO HCV NOT DETECTED. DOES NOT EXCLUDE THE POSSIBILITY OF EXPOSURE TO HCV. 05/11/2024 11:2 5 AM CDT Nevaeh Troncoso MD LABORATORY Final Result [facility] [address] [place] [address], [id number] * MAMMOGRAM GENERIC (SCAN ORDER) (05/01/2024) Anatomical Region Laterality Modality Other 05/01/2024 [facility] Scanned SCANNING Final Resu lt * PAP SMEAR WITH HPV (12/29/2023) 12/29/2023 [facility] Scanned SCANNING Final Resu lt from Last 3 Months or Most Recently Relevant to Health Maintenance Insurance [facility] [employer] [place] Care Teams Assistant To The Ceo Relationship Specialty Start Date End Date Nevaeh Troncoso MD [facility] [address] [address] PCP - General INTERNAL MEDICINE 03/14/24
--- OUTSIDE RECORDS SUMMARY | 2024-10-01 11:38 | XMS_ITS | Data Portability ---
Author Organization [facility] Address [address] [place] [address] Care Team Providers Care Earth Sciences Professor Name Role Phone AL MARTINEZ Primary Care Provider MARY TINOCO Consultant [employer]. Vice President [employer] (Ex ) Assessment No assessment recorded. Plan of Treatment Reminders Order Date Submit Date Provider Last Modified By Organization Details Last Modified Time Details Appointments None recorded. Lab None recorded. Referral rheumatolo gist referral 2023 [facility], [facility] [place], [address], 10:35:43 Procedures None recorded. Surgeries None recorded. Imaging holter monitor 2023 [facility], [address] [place] [address], [address], 15:38:45 Medication Orders sertraline 25 mg tablet 2023 024 [id number], [address], [place], [id number], 11:36:58 Patient TargetsNo targets recorded. Patient InstructionsNo instructions recorded. 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 [address], [place], [address], 11/08/2023 08:56:01 12/10/19 24 12/02/2023 shanique r monit or No observ ation record ed. [place] [address], [address], 12/13/2023 09:48:07 03/07/20 24 03/07/2024 exerc ise stres s test No observ ation record ed. [facility] [address] [facility] [address], [place], [address], 03/07/2024 14:20:16 05/01/20 24 05/01/2024 MAMMO , scree julieth, digit al, bilat eral No observ ation record ed. [address], [place], [address], 05/01/2024 10:15:24 Result Notes None recorded. Problems No Known Problems Procedures Surgical History Date Name Laterality Status Provider Name and Address Organization Details Recorded Time 07/12/2022 Date of Last Pap Smear completed YENY Anguiano [facility] 05/12/2023 10:17:04 Other completed YENY Anguiano [facility] 05/12/2023 10:21:29 Other completed Maira Gooden [facility] 05/12/2023 10:22:09 LEEP completed Maira Gooden [facility] 05/12/2023 10:22:45 Imaging Results Imaging Date Name Status LastModified by Organ atformerly [facility] Details LastModified Time 11/05/2023 XR, chest completed [address], [place], [address], 11/08/2023 08:56:01 12/02/2023 holter monitor completed [place] [address], [address], 12/13/2023 09:48:07 03/07/2024 exercise stress test completed [facility] [address] [facility] [address], [place], [address], 03/07/2024 14:20:16 05/01/2024 MAMMO, screening, digital, [facility] [address], [place], [address], 05/01/2024 10:15:24 Procedure Notes None recorded. Medical Equipment None Reported. Allergies No known drug allergies Medications Name Sig Start Date Stop Date Status Note LastModified by Organization Details LastModified Time cyclobenzap rine 10 mg tablet TAKE 1 TABLET BY MOUTH THREE TIMES DAILY NEEDED 05/12 completed PRN Not Available Not Available Not Available amoxicillin 500 mg capsule TAKE 1 CAPSULE BY MOUTH THREE TIMES DAILY 05/12 completed Not Available Not Available Not Available azithromyci n 250 mg tablet TK 2 TS PO ON DAY 1, THEN TK 1 T PO D FOR 4 DAYS 05/12 completed Not Available Not Available Not Available meloxicam 15 mg tablet TAKE 1 TABLET BY MOUTH DAILY 05/12 completed Not Available Not Available Not Available amoxicillin 875 mg tablet TAKE 1 TABLET BY MOUTH EVERY 12 HOURS FOR 10 DAYS 11/16 completed Not Available Not Available Not Available sertraline 25 mg tablet TAKE 1 TABLET BY MOUTH EVERY DAY active Not Available Not Available No t Available methylpredn isolone 4 mg tablets in a dose pack FOLLOW PACKAGE DIRECTION S 05/12 completed Not Available Not Available Not Available cefdinir 300 mg capsule TAKE 1 CAPSULE BY MOUTH TWICE DAILY 05/12 completed Not Available Not Available Not Available amoxicillin 500 mg-potassiu m clavulanate 125 mg tablet TAKE 1 TABLET BY MOUTH TWICE DAILY FOR 5 DAYS 05/12 completed Not Available Not Available Not Available azithromyci n 500 mg tablet TAKE 1 TABLET BY MOUTH EVERY DAY 11/16 completed Not Available Not Available Not Available cyclobenzap rine 5 mg tablet TAKE 1 TABLET BY MOUTH AT BEDTIME NEEDED FOR MUSCLE SPASM 11/16 completed PRN Not Available Not Available Not Available Vitals Date Recorded Body height Body mass index (BMI) Body weight Oxygen saturation Oxygen saturation in Arterial blood by Pulse oximetry Heart rate Respiratory rate Body temperature Systolic blood pressure Diastolic blood pressure Provider Name and Address Organization Details Last Updated DateTime 3 157.48 cm 19.6 kg/m2 89073.3 8 g 100 % 100 % 85 /min 16 /min 98.8 [degF] 107 mm[Hg] 74 mm[Hg] Maira Gooden MA [facility] 3 10:27:00 Date Recorded Body height Body mass index (BMI) Body weight Heart rate Oxygen saturation Oxygen saturation in Arterial blood by Pulse oximetry Systolic blood pressure Diastolic blood pressure Provider Name and Address Organization Details Last Updated DateTime 4 157.48 cm 19.9 kg/m2 69752.5 7 g 88 /min 100 % 100 % 100 mm[Hg] 66 mm[Hg] Candy Owusu MA [facility] 4 12:09:30 Date Recorded Body height Body mass index (BMI) Body weight Oxygen saturation Oxygen saturation in Arterial blood by Pulse oximetry Heart rate Systolic blood pressure Diastolic blood pressure Provider Name and Address Organization Details Last Updated DateTime 4 157.48 cm 19.8 kg/m2 30021.9 8 g 100 % 100 % 50 /min 98 mm[Hg] 58 mm[Hg] Candy Owusu MA [facility] 4 11:21:10 Social History Question Answer Notes LastModified by Organizat ion Details LastModified Time Tobacco Smoking Status Never Smoker Maira Gooden MA [facility] 05/12/2023 10:19:29 Do You Have An Advance Directive? No Information not available 05/12/2023 What Is Your Level Of Alcohol Consumption? Occasional 1-2 Monthly Information not available 05/12/2023 Are You Blind Or Do You Have Difficulty Seeing? No Glasses Information not available 05/12/2023 What Is Your Level Of Caffeine Consumption? None Information not available 05/12/2023 In The 14 Days Before Symptom Onset, Have You Had Close Contact With A Laboratory-confir med COVID-19 While That Case Was Ill? No Information not available 05/12/2023 In The 14 Days Before Symptom Onset, Have You Had Close Contact With A Person Who Is Under Investigation For COVID-19 While That Person Was Ill? No Information not available 05/12/2023 Have You Been To An Area Known To Be High Risk For COVID-19? No Information not available 05/12/2023 Are You Currently Employed? No Information not available 05/12/2023 Are You Deaf Or Do You Have Serious Difficulty Hearing? No Information not available 05/12/2023 What Type Of Diet Are You Following? REGULAR Information not available 05/12/2023 Are There Any Guns Present In Your Home? No Information not available 05/12/2023 What Was The Date Of Your Most Recent Tobacco Screening? 12/08/2023 [email or web address] Information not available 12/08/2023 How Many Children Do You Have? 1 Information not available 05/12/2023 What Is Your Relationship Status? Single Information not available 05/12/2023 Do You Use Your Seat Belt Or Car Seat Routinely? Yes Information not available 05/12/2023 Are You Sexually Active? No Information not available 05/12/2023 Do You Have Smoke And Carbon Monoxide Detectors In Your Home? Yes Information not available 05/12/2023 Are You Passively Exposed To Smoke? No Information no t available 05/12/2023 Do You Feel Stressed (tense, Restless, Nervous, Or Anxious, Or Unable To Sleep At Night)? [id number] Information not available 05/12/2023 Do You Use Any Illicit Or Recreational Drugs? No Information not available 05/12/2023 Do You Use Sunscreen Routinely? Yes Information not available 05/12/2023 Has Tobacco Cessation Counseling Been Provided? No Information not available 05/12/2023 Do You Or Have You Ever Used Any Other Forms Of Tobacco Or Nicotine? No Information not available 05/12/2023 Sex: Unknown Functional Status Question Answer Note LastModified by Organization D etails LastModified Time Are you able to care for yourself? Yes Information n ot available 05/12/2023 What is your exercise level? None some Information not available 05/12/2023 Mental Status None recorded. Family History Relationship Description Onset Age of this Age Resolved Age Notes LastModified by Organization Details LastModified Time Mother Malignant tumor of breast Not available 2022 10:18:12 Mother Hypertensive disorder Not available 2022 10:18:34 Father Heart disease Not available 2022 10:18:21 Father Hypertensive disorder Not available 2022 10:18:34 Medical History Condition Response Coronary Artery Disease N Other N Atrial Fibrillation N High Blood Pressure N Kidney or Bladder Problems Y Thyroid Problems Y Depression Y COPD N Blood Clots N GI Problems Y Skin Problems N Eating Disorder N Anemia N Heart Attack ([place]) N Anxiety Disorder Y Diabetes N Muscle, Joint, or Bone Problems N Seizures/Epilepsy N Acid Reflux (GERD) Y Cancer N Stroke N Asthma N Allergies N ADHD N Substance Abuse N High Cholesterol Y Hepatitis N Liver Disease N Headaches N Schizophrenia N Osteoporosis N Heart Failure N Gynecological History Statement/Question Response Date of Last Mammogram Flow Moderate Date of LMP 12/08/2023 On BCP's at Conception? N Duration of Flow (days) 4 Age at Menarche 11 Current Control Method None Age at First Child 32 Frequency of Cycle (Q days) 27 Menses Monthly Y Date of Last Pap Smear 07/12/2022 LMP Approximate Obstetrics History GPAL:G 1 P 1 0 0 1 Type Value Full Term 1 Living 1 Total 1 Immunizations Vaccine Type Date Status Note Provider Nam e and Address Organization Details Recorded Time Hib, unspecified formulation 06/11/1987 completed [place] [facility] 11/17/2023 09:21:26 MMR 07/29/1992 [place] [facility] 11/17/2023 09:21:26 MMR 01/04/1986 [place] [facility] 11/17/2023 09:21:26 COVID-19, mRNA, LNP-S, PF, 100 mcg/0.5mL dose or 50 mcg/0.25mL dose 10/04/2020 [place] [facility] 11/17/2023 09:21:26 COVID-19, mRNA, LNP-S, PF, 100 mcg/0.5mL dose or 50 mcg/0.25mL dose 11/01/2020 completed Ana Lilia H[place] [facility] 11/17/2023 09:21:26 COVID-19, mRNA, LNP-S, PF, 100 mcg/0.5mL dose or 50 mcg/0.25mL dose 06/17/2021 completed Ana Lilia H[place] [facility] 11/17/2023 09:21:26 DTP 09/20/1989 completed Ana Lilia [place] [facility] 11/17/2023 09:21:26 DTP 1984 completed Ana Lilia [place] [facility] 11/17/2023 09:21:26 DTP 11/27/1986 completed Ana Lilia [place] [facility] 11/17/2023 09:21:26 DTP 1984 completed Ana Lilia [place] [facility] 11/17/2023 09:21:26 DTP 01/05/1985 completed Ana Lilia [place] [facility] 11/17/2023 09:21:26 OPV 09/20/1989 completed Ana Lilia [place] [facility] 11/17/2023 09:21:26 OPV 1984 completed Ana Lilia [place] [facility] 11/17/2023 09:21:26 OPV 11/27/1986 completed Ana Lilia [place] [facility] 11/17/2023 09:21:26 OPV 01/05/1985 completed Ana Lilia [place] [facility] 11/17/2023 09:21:26 OPV 03/16/1985 completed Ana Lilia [place] [facility] 11/17/2023 09:21:26 Past Encounters Encounter ID Performer Location Encounter Start Date Encounter Closed Date Diagnosis/Indication Diagnosis SNOMED-CT Code Diagnosis ICD10 Code Diagnosis Note [id number] [facility] [address] [place] [address] 05/12/2023 09:49:13 05/19/2023 11:32:45 Adult health examination 149658817 Z00.00 Mixed anxi ety and depressive disorder 926144705 F41.8 Underweight 835361445 R6 3.6 [id number] Al Martinez PA-C [facility] [address] [place] [address] 11/17/2023 11:59:11 11/22/2023 14:50:51 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 [place] [address] 12/08/2023 10:53:31 12/09/2023 15:32:06 Mixed anxiety and depressive disorder 860634847 F41.8 Body mass index 20-24 - normal 602665549 Z68.20 Health Concerns Section Related Observation LastModified by Organization Detai ls LastModified Time None Recorded Concern Status LastModified by Organization Details LastModified Time None Recorded Advance Directives Directive N: Payers Encounter Date Sequence Insurance Name Policy Number Policy Diana Covered Member ID Diana Member ID Guarantor Name 05/12/2023 1 [facility] (MEDICAID HMO) [id number] [email or web address] [id number] Angelika [place] 11/17/2023 1 [facility] (MEDICAID HMO) [id number] Risk Ident [id number] Angelika [place] 12/08/2023 1 [facility] (MEDICAID HMO) [id number] [email or web address] [id number] Angelika [place] Notes Date Note Type Note Provider Name and Address Organization Details Recorded Time 05/12/2023 text/html was seeing a pcp in [facility]...now she is here.....has some thyroid issues...on off meds...never seem to matter so she is off...has started seeing a therapist for anxiety... 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 Al Martinez PA-C Attn: [address] [place], [address], [facility] 11/17/2023 12:34:21 12/08/2023 text/html stopped lexapro 1 year ago...wants a new med ...gotta be low dose due to sensitivity...branden alvarado is part of her issues...new stressors... Al Martinez PA-C Attn: [address] [place], [address], [facility] 12/08/2023 11:37:10 OBGyn Episode No OBEpisode recorded.
--- OUTSIDE RECORDS SUMMARY | 2024-10-01 11:38 | XMS_ITS | Referral Summary ---
Author Organization [facility] Address [address] [place] [address] Care Team Providers Care Tour Bus Driver Name Role Phone Donta Martinez Primary Care Provider [phone] Rachel Longo MD Unavailable [phone] Allergies No known active allergies Medications No [...] 07/29/1992,01/04/1986 Meningococcal Polysaccharide (Menomune) 11/06/2006 Tdap 07/02/2005 Social History Tobacco Use Types Packs/Day Years Used Date Smoking Tobacco: Never Smokeless Tobacco: Never Alcohol Use Standard Drinks/Week Comments No 0 (1 standard drink = 0.6 oz pur e alcohol) Comments Unknown Sex and Gender Information Value Date Recorded Sex Assigned at Not on file 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
--- OUTSIDE RECORDS SUMMARY | 2024-10-01 11:38 | XMS_ITS | Clinical Summary ---
Author Organization [facility] Address [address] [place] [address] Care Team Providers Care Supervisor Pole Yard Name Role Phone Tahir Marquez DO Primary Care Provider Allergies No known active allergies Medications TIROSINT 25 mcg Capsule Take 1 Capsule by mouth daily. 02/17/2019 Active calcium carbonate-mag hydroxide (MYLANTA SUPREME) 400-135 mg/5 mL Suspension Take 1 mL by mouth. Active IRON ORAL Take by mouth. Active Active Problems Problem Noted Date Diagnosed Date Lightheaded 01/31/2019 Rectocele 05/01/2017 Incontinence of urine 02/08/2017 Hx of Toño thyroiditis 10/27/2016 Chest pain 07/27/2014 DANII (generalized anxiety disorder) 03/26/2012 Resolved Problems Problem Noted Date Diagnosed Date Resolved Date Supervision of normal 12/09/2016 02/08/2017 Encounter for supervision of normal first in second trimester 08/11/2016 02/08/2017 Encounter for supervision of normal first in first trimester 07/01/2016 08/11/2016 Kidney stones 07/27/2014 10/02/2016 Fatigue 07/27/2014 10/02/2016 Panic attack 05/26/2012 10/02/2016 Depression 03/26/2012 10/02/2016 Immunizations Immunization Administration Dates Next Due (GARDASIL)(9-45 YRS) HUMAN P APILLOMAVIRUS VACCINE, TYPES 6, 11, 16, 18, QUADRIVALENT (4VHPV), 3 DOSE, IM 07/12/2008,07/12/2008,07/12/2008 Influenza Seasonal Unspecifi ed Formulation IM 04/20/2011 Skin Test TB 01/03/2013,01/21/2011 Family History Medical History Relation Name Comments Healthy Brother Healthy Father Heart Disease Father Hypertension Father Skin Cancer Father Heart Disease Maternal Grandmother Healthy Mother High Cholesterol Mother Breast Cancer Paternal Grandmother Healthy Sister Relation Name Status Comments Brother Alive Father Alive Maternal Grandfather Maternal Grandmother Mother Alive Paternal Grandfather Paternal Grandmother Sister Alive Social History Tobacco Use Types Packs/Day Years Used Date Smoking Tobacco: Never Smokeless Tobacco: Never Tobacco Cessation:Counseling Given: No Alcohol Use Standard Drinks/Week Comments Yes 5 (1 standard drink = 0.6 oz pur e alcohol) wine/beer Comments No Sex and Gender Information Value Date Recorded Sex Assigned at Not on file 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 Gender Identity Not on file Sexual Orientation Not on file Occupation Industry Job Start Date Job End Date [employer] Not on file Not on file Not on file Not on file Not on file Not on file Not on file Last Filed Vital Signs Vital Sign Reading Time Taken Comments Blood Pressure 102/60 03/15/2019 9:56 AM CDT Pulse 82 01/31/2019 2:00 PM CDT Temperature 37 C (98.6 F) 01/31/2019 10:05 AM CDT Respiratory Rate 18 01/31/2019 11:55 AM CDT Oxygen Saturation 98% 01/31/2019 2:00 PM CDT Inhaled Oxygen Concentration - - Weight 52.2 kg (115 lb) 03/15/2019 9:56 AM CDT Height 157.5 cm (5' 2 ) 03/15/2019 9:56 AM CDT Body Mass Index 21.03 03/15/2019 9:56 AM CDT Plan of Treatment Health Maintenance Due Date Last Done Comments HEPATITIS B VACCINES (1 of 3 - 19+ 3-dose series) 2003 07/18/2007, 02/21/2007, 11/06/2006 HPV VACCINES (3 - 3-dose series) 10/04/2008 07/12/2008, 07/12/2008, 07/12/2008, Additional history exists DTAP/TDAP/TD VACCINES (2 - Td or Tdap) 07/02/2015 07/02/2005 PAP SMEAR 02/27/2022 02/27/2019, 04/12, 05/20/2016, Additional history exists PAP SMEAR 02/27/2022 02/27/2019, 04/12, 05/20/2016, Additional history exists INFLUENZA VACCINE (#1) 2024 04/20/2011 CERVICAL CANCER SCREENING 02/28/2024 HPV/Cotest 02/28/2024 02/27/2019, 04/12, 03/04/2016, Additional history exists BREAST CANCER SCREENING 2024 03/05/2020 PNEUMOCOCCAL VACCINE 0-49 YEARS Aged Out No longer eligible based on patient's age to complete this topic Procedures Procedure Name Priority Date/Time Associated Diagnosis Comments MAMMO 3D BANDAR DIAGNOSTIC BILAT W OR WO CAD Routine 03/05/2020 9:10 AM CDT Abnormal mammogram CERV/VAG CYTO SCREEN PAP W/HPV Routine 02/27/2019 5:13 PM CDT Well woman exam with routine gynecological exam from Last 3 Months or Most Recently Relevant to Health Maintenance Results * MAMMO DIAG BILAT 3D BANDAR W OR WO CAD (03/05/2020 9:10 AM CDT) Anatomical Region Laterality Modality Breast Bilateral Mammography 03/05/2020 9:12 AM CDT Impressions 03/05/2020 12:47 PM CDT IMPRESSION: Negative baseline diagnostic mammogram. Recommend annual follow-up. OVERALL FINAL ASSESSMENT: BI-RADS CATEGORY 1: Negative. DICTATION LOCATION: [facility] Narrative 03/05/2020 12:47 PM CDT DIAGNOSTIC BILATERAL DIGITAL MAMMOGRAM WITH CAD WITH 3D TOMOSYNTHESIS 03/05/2020 CLINICAL HISTORY: Baseline exam. Pain upper outer left breast. A bilateral diagnostic tomogram was performed. This is her baseline exam. The breast parenchyma is heterogeneously dense. There is some asymmetry in the left axilla. No mass, suspicious calcifications, areas of asymmetry or other asymmetry or distortion are identified. Procedure Note Fatemeh Smith MD - 03/05/2020 DIAGNOSTIC BILATERAL DIGITAL MAMMOGRAM WITH CAD WITH 3D TOMOSYNTHESIS 03/05/2020 CLINICAL HISTORY: Baseline exam. Pain upper outer left breast. A bilateral diagnostic tomogram was performed. This is her baseline exam. The breast parenchyma is heterogeneously dense. There is some asymmetry in the left axilla. No mass, suspicious calcifications, areas of asymmetry or other asymmetry or distortion are identified. IMPRESSION: Negative baseline diagnostic mammogram. Recommend annual follow-up. OVERALL FINAL ASSESSMENT: BI-RADS CATEGORY 1: Negative. [facility] MAMMO ORDERABLES Final Result * CERV/VAG CYTO SCREEN PAP W/HPV (02/27/2019 5:13 PM CDT) CLINICAL INFORMATION SCREENING 03/01/2019 12:21 PM CDT [facility] LAST MENSTRUAL PERIOD UNK 03/01/2019 12:21 PM CDT [facility] PREV PAP: INFORMATION NOT PROVIDED 03/01/2019 12:21 PM CDT [facility] PREV BX: INFORMATION NOT PROVIDED 03/01/2019 12:21 PM CDT [facility] SOURCE Endocervix 03/01/2019 12:21 PM CDT [facility] ADEQUACY: SEE COMMENT 03/01/2019 12:21 PM CDT [facility] Comment: Satisfactory for evaluation. Endocervical/transformation zone component present. Age and/or menstrual status not provided PAP INTERP Negative for intraepithelial lesion or malignancy. 03/01/2019 12:21 PM CDT [facility] COMMENT This Pap test has been evaluated with computer assisted technology. 03/01/2019 12:21 PM CDT [facility] DISTRIBUTOR CLEANER: SEE COMMENT 2018 12:21 PM CDT [facility] Comment: TMK, CT(ASCP) CT screening location: [place] [address] [place] [address] EXPLANATORY NOTE SEE COMMENT 019 12:21 PM CDT [facility] Comment: EXPLANATORY NOTE: The Pap is a screening test for cervical cancer. It is not a diagnostic test and is subject to false negative and false positive results. It is most reliable when a satisfactory sample, regularly obtained, is submitted with relevant clinical findings and history, and when the Pap result is evaluated along with historic and current clinical information. HPV E6/E7 Not Detected Not Detected 03/01/2019 12:21 PM CDT [facility] Comment: This test was performed using the APTIMA HPV Assay ([employer] This assay detects E6/E7 viral messenger RNA (mRNA) from 14 high-risk HPV types (16,18,31,33,35,39,45,51,52,56,58,59,66,68). The analytical performance characteristics of this assay have been determined by [facility]. The modifications have not been cleared or approved by the FDA. This assay has been validated pursuant to the CLIA regulations and is used for clinical purposes. Genital SWAB OF ENDOCERVIX / Unknown Collection / Unknown 02/27/2019 5:13 PM CDT 02/27/2019 6:58 PM CDT Narrative [facility] - 03/01/2019 12:21 PM CDT Performing Organization Information: Site ID: [id number] [facility] Address: [address] [place] [id number] Director: Lars Winlker D.O., MPH Site ID: [id number] [facility] Address: [address] [place] [address] Director: Reji Kwon Janet PICHARDO PATHOLOGY/CYTOLOGY ORDER FEDERICO Final Result [facility] [phone] from Last 3 Months or Most Recently Relevant to Health Maintenance Insurance [facility] BLUE ACCESS CHOICE Advance Directives For more information, please contact: [phone] * Full Code (Latest Code Status on File) Date Activated Date Inactivated Comments 01/09/2017 10:54 PM 01/10/2017 8:19 PM * Full Code Date Activated Date Inactivated Comments 01/09/2017 3:06 PM 01/09/2017 10:54 PM Care Teams Supervisor Pole Yard Relationship Specialty Start Date End Date Tahir Marquez DO PCP - General Internal Medicine 01/28/19
--- OUTSIDE RECORDS SUMMARY | 2024-10-01 11:38 | XMS_ITS | Clinical Summary ---
Author Organization [facility] Address [address] [place] [address] Care Team Providers Care Corporate Physical Security Supervisor Name Role Phone Unavailable Primary Care Provider Unavailabl e Source Comments [facility],non-owned Affiliates and Associated Physician Practices is amultiple site organization consisting of ambulatory clinics and hospital sitesin [place], [place] and [place]. This disclosure is being madepursuant to the Care Everywhere program and may not contain all information available regarding this patient. Last updated 18.[facility] [employer] Social History Tobacco Use Types Packs/Day Years Used Date Smoking Tobacco: Never Assessed Sex and Gender Information Value Date Recorded Sex Assigned at Not on file Gender Identity Not on file Sexual Orientation Not on file Plan of Treatment Upcoming Encounters Date Type Department Care Team (Late st Contact Info) Description 11/07/2024 1:00 PM CDT Office Visit [facility] - Rheumatology [address] [place] [id number] Sammy Cox MD [address] [place] [address] Health Maintenance Due Date Last Done Comments MAMMOGRAM 1984 PAP SMEAR 1984 HIV SCREENING 1999 DTAP/TDAP/TD VACCINES (1 - Tdap) 2003 HEPATITIS B VACCINE (1 of 3 - 19+ 3-dose series) 2003 COVID-19 VACCINE ( - 2023-2 5 season) 2024 INFLUENZA VACCINE (#1) 2024 DEPRESSION SCREENING 07/12/2024 LIPID TESTING 05/11/2029 05/11/2024 ZOSTER VACCINE (1 of 2) 2034 HEPATITIS C SCREENING Completed 05/11/2024 HIB VACCINE Aged Out No longer eligi ble based on patient's age to complete this topic HPV VACCINE Aged Out No longer eligi ble based on patient's age to complete this topic MENINGOCOCCAL (Group B) VACC INE SHARED DECISION-MAKING Aged Out No longer eligibl e based on patient's age to complete this topic MENINGOCOCCAL GROUPS A/C/Y/W VACCINE Aged Out No longer eligible b ased on patient's age to complete this topic PNEUMOCOCCAL VACCINE Aged Out No long er eligible based on patient's age to complete this topic
--- OUTSIDE RECORDS SUMMARY | 2024-10-01 11:38 | XMS_ITS | Encounter Summary ---
Author Organization [facility] Address [address] [place] [address] Care Team Providers Care Psychiatric Specialist Name Role Phone Roland Roy MD Primary Care Provider [phone] Donta Martinez Primary Care Provider [phone] Rachel Longo MD Unavailable [phone] Encounter Details Date Type Department Care Team (Late st Contact Info) Description 06/20/2020 Telephone [facility] - Imaging [address] [place] [address] Transcribed Order, Provider Social History Tobacco Use Types Packs/Day Years Used Date Smoking Tobacco: Never Smokeless Tobacco: Never Alcohol Use Standard Drinks/Week Comments No 0 (1 standard drink = 0.6 oz pur e alcohol) Comments Unknown Sex and Gender Information Value Date Recorded Sex Assigned at Not on file 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 Gender Identity Not on file Sexual Orientation Not on file documented as of this encounter Plan of Treatment Not on file documented as of this encounter Visit Diagnoses Not on filedocumented in this encounter Care Teams Psychiatric Specialist Relationship Specialty Start Date End Date Roland Roy MD [address] [facility] [address] [place] [address] PCP - General Endocrinology Diabetes & Metabolism 05/21/20 12/13/23 Donta Martinez PA [address] [place] [address] PCP - General Family Practice 12/29/23 Rachel Longo MD [address] [place] [address] Referring Physician Obstetrics and Gynecology 12/29/23 documented as of this encounter
--- OUTSIDE RECORDS SUMMARY | 2024-10-01 11:38 | XMS_ITS | Encounter Summary ---
Author Organization [facility] Healthcare Address [address] [place] [address] Care Team Providers Care Refrigerating Engineer Head Name Role Phone Roland Roy MD Primary Care Provider [phone] Donta Martinez Primary Care Provider [phone] Rachel Longo MD Unavailable [phone] Encounter Details Date Type Department Care Team (Late st Contact Info) Description 05/27/2020 Telephone [facility] - Imaging [address] [place] [address] Transcribed Order, Provider Social History Tobacco Use Types Packs/Day Years Used Date Smoking Tobacco: Never Smokeless Tobacco: Never Alcohol Use Standard Drinks/Week Comments No 0 (1 standard drink = 0.6 oz pur e alcohol) Comments Unknown Sex and Gender Information Value Date Recorded Sex Assigned at Not on file 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 Gender Identity Not on file Sexual Orientation Not on file documented as of this encounter Plan of Treatment Not on file documented as of this encounter Visit Diagnoses Not on filedocumented in this encounter Care Teams Refrigerating Engineer Head Relationship Specialty Start Date End Date Roland Roy MD [address] [facility] [address] [place] [address] PCP - General Endocrinology Diabetes & Metabolism 05/21/20 12/13/23 Donta Martinez PA [address] [place] [address] PCP - General Family Practice 12/29/23 Rachel Longo MD [address] [place] [address] Referring Physician Obstetrics and Gynecology 12/29/23 documented as of this encounter
--- NOTE | 2024-10-01 11:39 | ECG_ITS ---
Test Date: 2024-10-01 12:23:20 Measurements Intervals Beulah Rate: 62 P: 39 WY: 175 QRS: 69 QRSD: 87 T: 68 QT: 404 QTc: 412 Interpretive Statements SINUS RHYTHM No previous ECG available for comparison Electronically Signed On 10-01-2024 13:36:32 CDT by Laurel Aguilar M.D.
[2024-10-01 12:02] LABS: Basophils Absolute Auto 0.1 K/mm3 (0.0-0.1); Basophils Percent Auto 0.9 % (0.2-1.2); Eosinophils Absolute Auto 0.1 K/mm3 (0-0.3); Eosinophils Percent Auto 0.7 % (0-4.4); Immature Granulocyte Absolute 0.01 K/mm3 (0.00-0.031); Immature Granulocyte Percent A 0.1 % (0-0.5); Lymphocytes Absolute Auto 2.12 K/mm3 (0.9-3.2); Mean Corpuscular HGB Conc 33.3 g/dl (32-36); Mean Corpuscular Hemoglobin 29.9 pg (26-34); Mean Corpuscular Volume 89.8 fl (80-100); Mean Platelet Volume 9.9 fl (7.4-10.4); Monocytes Absolute Auto 0.5 K/mm3 (0.1-0.6); Monocytes Percent Auto 7.8 % (2.6-8.5); Neutrophils Absolute Auto 4.1 K/mm3 (1.3-6.7); Neutrophils Percent Auto 59.5 % (45.5-73.1); Platelet Count Result 306 k/mm3 (150-375); Red Blood Count 4.01 M/mm3 (4.2-5.4); Red Cell Distribution Width 13.1 % (11.5-14.5); White Blood Count 6.8 K/mm3 (4.5-10.0)
[2024-10-01 12:03] VITALS: O2SAT 99
[2024-10-01 12:11] LABS: Alanine Aminotransferase 14 U/L (6-35); Albumin Level 4.4 g/dL (3.5-5.1); Alkaline Phosphatase 70 U/L (38-126); Anion Gap 10 mmol/L (4-12); Aspartate Amino Transferase 20 U/L (14-36); Bilirubin,Total 0.5 mg/dL (0.2-1.3); Blood Urea Nitrogen 12 mg/dL (7-17); Carbon Dioxide 24 mmol/L (22-30); Chloride 105 mmol/L (98-107); Estimated CRCL calculation 63 ml/min; Estimated Glomerular Filt Rate > 60; Glucose 89 mg/dL (65-110); Lipase 84 U/L (23-300); Potassium 4.4 mmol/L (3.4-5.0); Sodium 139 mmol/L (137-145)
[2024-10-01 12:16] LABS: Partial Thromboplastin Time 27.2 Seconds (22.3-36.8); Prothrombin Time 13.2 Seconds (11.1-14.7)
[2024-10-01 12:22] LABS: Troponin I < 0.012 ng/mL (0.000-0.034)
--- NOTE | 2024-10-01 12:34 | ED.CHESTPAIN ---
HPI - Chest Pain General Chief Complaint: Chest Pain Stated Complaint: chest pain/zapping in chest Time Seen by Provider: 10/01/24 12:31 Source: patient Mode of arrival: ambulatory Limitations: no limitations History of Present Illness HPI narrative: 39 years old white female drove herself to the emergency room complaining of feeling discomfort left side of the chest, palpitation, numbness left side of the neck and left upper extremity started yesterday after using an electrical facial device to look younger. Patient started that device 5 days ago, yesterday used it for longer period of time more than instructed. Related Data Home Medications ?Medication ?Instructions ?Recorded ?Confirmed ?Last Taken ?Type No Home Medications 12/29/23 10/01/24 Unknown History Allergies Allergy/AdvReac Type Severity Reaction Status Date / Time No Known Allergies Allergy Verified 10/01/24 11:45 Review of Systems Review of Systems: All systems reviewed & are unremarkable except as noted in HPI and below PMFSH Past Medical History Medical History Interstitial cystitis Kidney stone Surgical History Surgical History H/O colposcopy with cervical biopsy HPV H/O LEEP benign per pt 15 years ago S/P ear surgery History of mandibular surgery History of bladder surgery Family History Family History Father Thyroid disorder Heart disease Sibling Depression Grandparent Alcoholism Grandparent Alcoholism Cancer Mother Breast cancer, Onset Age: 68 Social History Social History Smoking status: Never smoker Alcohol intake: never Substance use: never Substance use type: does not use Current Housing: Decline to Answer Concerned About Future Housing: Decline to Answer Difficulty Paying Gas/Electric Bills: Decline to Answer Difficulty Paying for Meds: Decline to Answer Currently Unemployed: Decline to Answer Education: Decline to Answer Difficulty w/ Childcare or Family Care: Decline to Answer Living arrangements: with family Additional living arrangements comments: kid Occupation/Education: occupation Gender identity (if verbalized by the patient): Female Sexual Orientation (if Verbalized by the Patient): Straight or Heterosexual Exam Narrative: General appearance: Well-developed, well-nourished Skin: Normal color Head: Normocephalic, nontraumatic Eyes: Clear conjunctiva ENT: Oropharynx normal, ears normal, nose normal Neck: Supple, nontender Chest and respiratory: Airway patent, no respiratory distress, no accessory muscle use Heart: Regular rate/rhythm Abdomen: Soft, nontender, no organomegaly, quiet bowel sounds Vascular: Normal peripheral pulses, normal capillary refill. Musculoskeletal: Normal range of motion, nontender back Neurologic: Alert and oriented ?3, CREDIT INVESTIGATOR is normal as tested, no gross motor deficit Course Vital Signs Vital signs: Vital Signs Temperature 36.2 C L 10/01/24 11:36 Pulse Rate 71 10/01/24 11:36 Respiratory Rate 16 10/01/24 11:36 Blood Pressure 115/85 10/01/24 11:36 Pulse Oximetry 100 10/01/24 11:36 Oxygen Delivery Room Air 10/01/24 11:36 Temperature 36.2 C L 10/01/24 11:36 Pulse Rate 71 10/01/24 11:36 Respiratory Rate 16 10/01/24 11:36 Blood Pressure 115/85 10/01/24 11:36 Pulse Oximetry 99 10/01/24 12:03 Oxygen Delivery Room Air 10/01/24 12:03 MDM - Chest Pain MDM Narrative Medical decision making narrative: Patient presents with numbness left side of neck left upper extremity, palpitation, feeling that her heart got stabbed after using an electric facial device to look younger. Vital signs are stable Physical examination is unremarkable Differential diagnosis include anxiety like symptoms, less likely heart related symptoms. Blood workup today includes CBC, CMP, troponin, TSH showed no significant abnormality Chest x-ray showed no acute abnormalities EKG showed normal sinus rhythm Diagnosis of anxiety like symptoms, could be side effect to the device. Patient was advised to not to use the device for at least 10 days then if she would like to use it again use it at the lower duration according to the device instructions. Differential Diagnosis Differential diagnosis: Likely other (Anxiety like symptoms, less likely coronary artery disease, hyperthyroidism) Medical Records Data Attestation: I reviewed the patient's medical records. Lab Data Attestation: I reviewed the patient's lab results. 10/01/24 11:54 10/01/24 11:54 Labs: Lab Results 10/01/24 Range/Units 11:54 WBC 6.8 (4.5-10.0) K/mm3 RBC 4.01 L (4.2-5.4) M/mm3 Hgb 12.0 (12.0-15.0) g/dL Hct 36.0 L (37.0-47.0) % MCV 89.8 (80-100) fl MCH 29.9 (26-34) pg MCHC 33.3 (32-36) g/dl RDW 13.1 (11.5-14.5) % Plt Count 306 (150-375) k/mm3 MPV 9.9 (7.4-10.4) fl Immature Gran % (Auto) 0.1 (0-0.5) % Neut % (Auto) 59.5 (45.5-73.1) % Lymph % (Auto) 31.0 (18.3-44.2) % Culberson % (Auto) 7.8 (2.6-8.5) % Eos % (Auto) 0.7 (0-4.4) % Baso % (Auto) 0.9 (0.2-1.2) % Lymph # (Auto) 2.12 (0.9-3.2) K/mm3 Culberson # (Auto) 0.5 (0.1-0.6) K/mm3 Eos # (Auto) 0.1 (0-0.3) K/mm3 Baso # (Auto) 0.1 (0.0-0.1) K/mm3 Abs Immat Gran (auto) 0.01 (0.00-0.031) K/mm3 Absolute Neuts (auto) 4.1 (1.3-6.7) K/mm3 Absolute Nucleated RBC 0.000 (0.0-0.012) K/mm3 Nucleated RBC % 0.0 (0.0-0.2) % PT 13.2 (11.1-14.7) Seconds INR 1.0 APTT 27.2 (22.3-36.8) Seconds Sodium 139 (137-145) mmol/L Potassium 4.4 (3.4-5.0) mmol/L Chloride 105 (98-107) mmol/L Carbon Dioxide 24 (22-30) mmol/L Anion Gap 10 (4-12) mmol/L BUN 12 D (7-17) mg/dL Creatinine 0.78 (0.7-1.0) mg/dL Estim Creat Clear Calc 63 ml/min Estimated GFR > 60 (59 - ) Glucose 89 (65-110) mg/dL Calcium 9.0 (8.4-10.2) mg/dL Total Bilirubin 0.5 (0.2-1.3) mg/dL AST 20 (14-36) U/L ALT 14 (6-35) U/L Alkaline Phosphatase 70 (38-126) U/L Troponin I < 0.012 (0.000-0.034) ng/mL Total Protein 7.0 (6.3-8.2) g/dL Albumin 4.4 (3.5-5.1) g/dL Lipase 84 (23-300) U/L TSH 2.940 (0.465-4.680) uIU/mL Imaging Data Radiologist's impression: Impressions Chest X-Ray 10/01/24 12:26 IMPRESSION: No focal infiltrate or effusion. Critical Care Time Critical Care Time Critical Care Time: No Discharge Plan Discharge Clinical Impression: Anxiety-like symptoms Patient Disposition: Home, Self-Care Condition: Stable Instructions: Paresthesia (ED), Anxiety (ED) Additional Instructions: Return if symptoms are worsening , call your family physician for appointment, take Tylenol as as needed for aches and pain, continue home medications. Do not use the facial device for at least 10 days then try to use it for the short duration instructed by the munfacture Patient Language: Gambian Prescriptions: No Action No Home Medications Follow-up/Referrals: Michelle,ELDA Cruz [Primary Care Provider] - Quality HEART score for chest pain patients History: slightly suspicious ECG: normal Age: < or = to 45 years Risk factors: no risk factors known Troponin: < or = to 1x normal limit Heart score: 0
--- OUTSIDE RECORDS SUMMARY | 2024-10-01 12:38 | XMS_ITS | Encounter Summary ---
Author Organization [facility] Healthcare Address [address] [place] [address] Care Team Providers Care Breakfast Cook Name Role Phone Roland Roy MD Primary Care Provider [phone] Donta Martinez Primary Care Provider [phone] Rachel Longo MD Unavailable [phone] Encounter Details Date Type Department Care Team (Late st Contact Info) Description 06/20/2020 Telephone [facility] - Imaging [address] [place] [address] Transcribed Order, Provider Social History Tobacco Use Types Packs/Day Years Used Date Smoking Tobacco: Never Smokeless Tobacco: Never Alcohol Use Standard Drinks/Week Comments No 0 (1 standard drink = 0.6 oz pur e alcohol) Comments Unknown Sex and Gender Information Value Date Recorded Sex Assigned at Not on file 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 [address] [place] [address] PCP - General Endocrinology Diabetes & Metabolism 05/21/20 12/13/23 Donta Martinez PA [address] [place] [address] PCP - General Family Practice 12/29/23 Rachel Longo MD [address] [place] [address] Referring Physician Obstetrics and Gynecology 12/29/23 documented as of this encounter
--- OUTSIDE RECORDS SUMMARY | 2024-10-01 12:38 | XMS_ITS | Clinical Summary ---
Author Organization [facility] Address Formerly [facility] [place] [address] Care Team Providers Care Treatment Specialist Name Role Phone Nevaeh Troncoso MD Primary Care Provider [phone] Allergies No known active allergies Medications FLUoxetine [...] season) 2024 06/17/2021, 11/01/2020, 10/04/2020 PHQ-2 (Physician [place]) 07/12/2024 05/11/2024 Annual Physical 05/11/2025 05/11/2024 Influenza [...] Final Result [facility] [address] [place] [address], [id number] * MAMMOGRAM GENERIC (SCAN ORDER) (05/01/2024) Anatomical Region Laterality Modality Other 05/01/2024 us [facility] Scanned SCANNING Final Resu lt * PAP SMEAR WITH HPV (12/29/2023) 12/29/2023 us [employer] [facility] Scanned SCANNING Final Resu lt from Last 3 Months or Most Recently Relevant to Health Maintenance Insurance [facility] Care Teams Treatment Specialist Relationship Specialty Start Date End Date Nevaeh Troncoso MD [facility] [address] PCP - General INTERNAL MEDICINE 03/14/24
--- OUTSIDE RECORDS SUMMARY | 2024-10-01 12:38 | XMS_ITS | Referral Summary ---
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
--- OUTSIDE RECORDS SUMMARY | 2024-10-01 12:38 | XMS_ITS | Encounter Summary ---
Author Organization [facility] Address [address] [place] [address] Care Team Providers Care Central Supply Technician Supervisor Name Role Phone Unavailable Primary Care Provider Unavailabl e Reason for Referral * Consultation (Routine) - Closed Specialty Diagnoses / Procedures Referred By Contac t Referred To Contact Dermatology Diagnoses Multiple atypical skin moles Nevaeh Troncoso MD [address] [address] [facility] [address] [place] [address] Referral ID Status Reason Start Date Expiration Date V isits Requested Visits Authorized [id number] Closed Specialty Services Required 05/17/2024 05/17/2025 1 1 ER OR CERAMIC ARTIST Encounter Details Date Type Department Care Team (Latest Contact Info) Description 05/17/2024 Transcribe Orders [facility] - Centralized Scheduling [facility] [place] [address] Nevaeh Troncoso MD [address] [address] Multiple atypical skin moles Social [...] Health [facility] [address] [place] [phone] Sammy Cox MD [address] [place] [address] Scheduled Referrals Name Type Priority Associated Diagnoses Order Schedule AMB REFERRAL TO DERMATOLOGY Outpatient Referral Routine Multiple atypical skin moles 1 Occurrences starting 05/17/2024 until 05/17/2025 documented as of this encounter Visit Diagnoses Diagnosis Multiple atypical skin moles- Primary documented in this encounter
--- OUTSIDE RECORDS SUMMARY | 2024-10-01 12:38 | XMS_ITS | Clinical Summary ---
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 Gender Identity Not on file Sexual Orientation [...] patient's age to complete this topic Insurance [facility] [employer] Member Subscriber Plan / Payer (Ef fective 2017-Present) Name:Angelika Gibbons Relation to Subscriber:Self Name:Angelika Gibbons Payer ID:[id number] (NAIC) Type:DEON HEIN Address: [facility] [id number] [facility] Care Teams Territory Development Manager Relationship Specialty Start Date End Date Donta Martinez PA [address] [place] [address] PCP - General Family Practice 12/29/23 Rachel Longo MD [address] [place] [address] Referring Physician Obstetrics and Gynecology 12/29/23
--- OUTSIDE RECORDS SUMMARY | 2024-10-01 12:38 | XMS_ITS | Clinical Summary ---
Author Organization [facility] Address [address] [place] [address] Care Team Providers Care Chief Airport Guide Name Role Phone Tahir Maruqez DO Primary Care Provider Allergies No known [...] on file Legal Sex Female 6:10 AM DIRECTOR OF PROPERTY MANAGEMENT Gender Identity Not on file Sexual Orientation Not on file Occupation Industry Job Start Date Job End Date [employer] Not on file Not on file Not [...] ASSESSMENT: BI-RADS CATEGORY 1: Negative. DICTATION LOCATION: [facility] Narrative 03/05/2020 12:47 PM CDT DIAGNOSTIC BILATERAL [...] ASSESSMENT: BI-RADS CATEGORY 1: Negative. DICTATION LOCATION: [facility] DO MAMMO ORDERABLES Final Result * CERV/VAG CYTO SCREEN PAP W/HPV (02/27/2019 5:13 PM CDT) CLINICAL INFORMATION SCREENING 03/01/2019 12:21 PM CDT [facility] LAST MENSTRUAL PERIOD UNK 03/01/2019 12:21 PM CDT [facility] PREV PAP: INFORMATION NOT PROVIDED 03/01/2019 12:21 PM CDT [facility] PREV BX: INFORMATION NOT PROVIDED 03/01/2019 12:21 PM CDT [facility] SOURCE Endocervix 03/01/2019 12:21 PM CDT [facility] ADEQUACY: SEE COMMENT 03/01/2019 12:21 PM CDT [facility] Comment: Satisfactory for evaluation. Endocervical/transformation zone component present. Age and/or menstrual status not provided PAP INTERP Negative for intraepithelial lesion or malignancy. 03/01/2019 12:21 PM CDT [facility] COMMENT This Pap test has been evaluated with computer assisted technology. 03/01/2019 12:21 PM CDT [facility] UTILITY PORTER: SEE COMMENT 2018 12:21 PM CDT [facility] Comment: TMK, CT(ASCP) CT screening location: [place] [address] [place] [address] EXPLANATORY NOTE SEE COMMENT 019 12:21 PM CDT [facility] Comment: EXPLANATORY NOTE: The Pap [...] of this assay have been determined by [employer]. The modifications have not been cleared or approved by the FDA. This assay has been validated pursuant to the CLIA regulations and is used for clinical purposes. Genital SWAB OF ENDOCERVIX / Unknown Collection / Unknown 02/27/2019 5:13 PM CDT 02/27/2019 6:58 PM CDT Narrative [facility] - 03/01/2019 12:21 PM CDT Performing Organization Information: Site ID: [id number] Name: [facility] Address: [address] [place] [address] Director: Lars Winkler D.O., MPH Site ID: [id number] [facility]: [facility] Address: [address] [place] [address] Director: Reji Kwon Janet PICHARDO PATHOLOGY/CYTOLOGY ORDER FEDERICO Final Result [facility] [phone] from Last 3 Months or Most Recently Relevant to Health Maintenance Insurance [facility] BLUE ACCESS CHOICE Advance Directives For more information, please contact: [phone] * Full Code (Latest Code Status on File) Date Activated Date Inactivated Comments 01/09/2017 10:54 PM 01/10/2017 8:19 PM * Full Code Date Activated Date Inactivated Comments 01/09/2017 3:06 PM 01/09/2017 10:54 PM Care Teams Chief Airport Guide Relationship Specialty Start Date End Date Tahir Marquez DO PCP - General Internal Medicine 01/28/19
--- OUTSIDE RECORDS SUMMARY | 2024-10-01 12:38 | XMS_ITS | Encounter Summary ---
Author Organization [facility] Address [address] [place] [address] Care Team Providers Care Migration Specialist Name Role Phone Roland Roy MD Primary Care Provider [phone] Donta Martinez Primary Care Provider [phone] Rachel Longo MD Unavailable [phone] Encounter Details Date Type Department Care Team (Late st Contact Info) Description 05/27/2020 Telephone 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 Gender Identity Not on file Sexual Orientation Not on file documented as of this encounter Plan of Treatment Not on file documented as of this encounter Visit Diagnoses Not on filedocumented in this encounter Care Teams Migration Specialist Relationship Specialty Start Date End Date Roland Roy MD [address] [facility] [address] [place] [address] PCP - General Endocrinology Diabetes & Metabolism 05/21/20 12/13/23 Donta Martinez PA [address] [place] [address] PCP - General Family Practice 12/29/23 Rachel Longo MD [address] [place] [address] Referring Physician Obstetrics and Gynecology 12/29/23 documented as of this encounter
--- OUTSIDE RECORDS SUMMARY | 2024-10-01 12:38 | XMS_ITS | Clinical Summary ---
Author Organization [facility] Address [address] [facility] [place] [address] Care Team Providers Care Maritime Engineer Name Role Phone Unavailable Primary Care Provider Unavailabl e Source Comments [facility],non-owned Affiliates and Associated Physician Practices is amultiple site organization consisting of ambulatory clinics and hospital sitesin [place], [place], [place] and [place]. This disclosure is being madepursuant to the Care Everywhere program and may not contain all information available regarding this patient. Last updated 18.[facility] [employer] Social History Tobacco Use Types Packs/Day Years [...] Physician Group - Rheumatology [address] [place] [id number] Sammy Cox MD [address] [place] [address] Health Maintenance Due Date Last [...]
[2024-10-01 14:34] VITALS: BP 100/66; PULSE 78; RESP 17; O2SAT 100
== END 2024-10-01 14:35 | disposition home or self-care (01) ==
PROVIDERS: Emergency Provider Emergency Medicine; PCP Physician Assistant
DX: F41.9 Anxiety disorder, unspecified (principal)
CPT/HCPCS: 36415; 71046; 80053; 83690; 84443; 84484; 85025; 85610; 85730; 93005; 99284

== ENCOUNTER 2025-03-29 02:51 | Emergency (ER) | payer OTHER, SELFPAY ==
--- NOTE | ~2025-03-29 | CT_ITS ---
EXAMINATION: CT abdomen pelvis w con DATE: 03/29/2025 03:56 INDICATION: Low abdominal pain. Pelvic pain. TECHNIQUE: Computed tomography (CT) of the abdomen and pelvis was performed with 100 mL Omnipaque 350 intravenous contrast. Automated exposure control and iterative reconstruction technique were employed. The dose-length product was 200.43 mGy-cm. COMPARISON: CT abdomen and pelvis 08/24/2022 FINDINGS: The visualized portions of the lung bases demonstrate mild atelectasis. No pleural effusion. The heart size is normal. No pericardial effusion. There is a 13 mm hyperenhancing mass in left hepatic lobe without change, likely a hemangioma or focal nodular hyperplasia. The gallbladder, spleen, pancreas, and adrenal glands are normal. There are cysts in the kidneys measuring up to 5 mm on the left. There is a 2 mm stone in right kidney. There is a 2 mm stone in left kidney. There are no dilated loops of bowel. The appendix is not visualized. There are no pathologically enlarged lymph nodes. T here is no free intraperitoneal fluid. T11 is a butterfly segment. IMPRESSION: 1. No etiology for the patient's symptoms. Reviewed, dictated and finalized at location E.
--- OUTSIDE RECORDS SUMMARY | 2025-03-29 02:54 | XMS_ITS | Encounter Summary ---
Author Organization [facility] Healthcare Address [address] [place] [address] Care Team Providers Care House Wrecker Name Role Phone Roland Roy MD Primary Care Provider [phone] Donta Martinez Primary Care Provider [phone] Rachel Longo MD Unavailable [phone] Encounter Details Date Type Department Care Team (Late st Contact Info) Description 06/20/2020 Telephone [facility] - Imaging [address] [place] [address] Transcribed Order, Provider Social History Tobacco Use Types Packs/Day Years Used Date Smoking Tobacco: Never Smokeless Tobacco: Never Alcohol Use Standard Drinks/Week Comments No 0 (1 standard drink = 0.6 oz pur e alcohol) Comments Unknown Sex and Gender Information Value Date Recorded Sex Assigned at Not on file Legal Sex Female 12:36 PM FACE BURLER Gender Identity Not on file Sexual Orientation Not on file documented as of this encounter Plan of Treatment Not on file documented as of this encounter Visit Diagnoses Not on filedocumented in this encounter Care Teams House Wrecker Relationship Specialty Start Date End Date Roland Roy MD [address] [facility] [address] [place] [address] PCP - General Endocrinology Diabetes & Metabolism 05/21/20 12/13/23 Donta Martinez PA [address] [place] [address] PCP - General Family Practice 12/29/23 Rachel Longo MD [address] [place] [address] Referring Physician Obstetrics and Gynecology 12/29/23 documented as of this encounter
--- OUTSIDE RECORDS SUMMARY | 2025-03-29 02:54 | XMS_ITS | Clinical Summary ---
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 Other Medical Jaw realignment repair High [...] on file Legal Sex Female 12:36 PM SHOT EXAMINER Gender Identity Not on file Sexual Orientation [...] A M CDT Height 154.9 cm (5' 1) 02/24/2024 8:52 AM CDT Body Mass Index [...] 09/20/1989, 11/27/1986, Additional history exists Covid-19 Vaccine (2024- season) 2025 06/17/2021, 11/01/2020, 10/04/2020 Influenza Vaccine (#1) 2025 04/20/2011 Hepatitis B Screening Completed 07/18/2007 , 02/21/2007, 11/06/2006 Pneumococcal vaccine <65 Aged Out No longer eligible based on patient's age to complete this topic Insurance [facility] [employer] Member Subscriber Plan / Payer (Ef fective 2017-Present) Name:Angelika Gibbons Relation to Subscriber:Self Name:Angelika Gibbons Payer ID:[id number] (NAIC) Type:DEON HEIN Address: [facility] [id number] [address] [facility] Care Teams Gathering Machine Setter Relationship Specialty Start Date End Date Donta Martinez PA [address] [place] [address] PCP - General Family Practice 12/29/23 Rachel Longo MD [address] [place] [address] Referring Physician Obstetrics and Gynecology 12/29/23
--- OUTSIDE RECORDS SUMMARY | 2025-03-29 02:54 | XMS_ITS | Clinical Summary ---
Author Organization [facility] Address [address] [place] [address] Phone Care Team Providers Care Piece Goods Packer Name Role Phone Provider, None Primary Care Provider Unavailabl e Allergies No known active allergies Medications doxycycline hyclate (VIBRAMYCIN) 100 MG Capsule Take 1 Capsule by mouth 2 times daily for 10 days. 20 Capsule 5 03/29/20 25 Active Additional Information Patient not taking.Reported on 03/27/2025 FLUoxetine (PROzac) 10 MG Tablet Take 10 mg by mouth daily. 4 Active cephALEXin (KEFLEX) 500 MG Capsule Take 1 capsule 3 times a day by oral route for 10 days. 5 Active omeprazole (PriLOSEC) 40 MG CAPSULE DELAYED RELEASE Take 40 mg by mouth daily. 4 Active predniSONE (DELTASONE) 10 MG Tablet Take 10 mg by mouth daily. Active ciprofloxacin (CIPRO) 500 MG TabletIndicatio ns:Dysuria,Acut e non-recurrent pansinusitis,Fl ank pain, acute Take 1 Tablet by mouth 2 times daily for 10 days. 20 Tablet 5 04/06/20 25 Active Active Problems No known active problems Encounters Date Type Department Care Team Description 03/28/2025 Results Follow-Up [facility] [address] [place] [address] Sarah Parrish, AUTO TECHNICIAN, SUPERVISOR ELECTRONICS PROCESSING POCT UA AUTOMATED W/O MICRO, CULTURE, URINE 03/27/2025 8:40 AM CDT Urgent Care Visit [facility] [address] [place] [address] Tess Waldrop, AUTO TECHNICIAN, SUPERVISOR ELECTRONICS PROCESSING Acute non-recurrent pansinusitis (Primary Dx); Dysuria; Flank pain, acute Discharge Disposition: Discharged to home or Selfcare 03/27/2025 Travel 03/19/2025 9:15 AM CDT Urgent Care Visit [facility] [address] [place] [address] Sarah Parrish APRN, SUPERVISOR ELECTRONICS PROCESSING Acute non-recurrent pansinusitis (Primary Dx) Discharge Disposition: Discharged to home or Selfcare 03/19/2025 Travel from Last 3 Months Immunizations Immunization Administration Dates Next Due DTAP VACCINE, 5 PERTUSSIS AN TIGENS, VACCINE IM 09/20/1989 DTP Vaccine 11/27/1986, 5,1984,10/28 Hepatitis B Vaccine 07/18/2007,02/21/2007,2006 Hib Vaccine,unspecified Formulation 06/11/1987 Human Papillomavirus Vaccine (HPV), quadrivalent 07/12/2008,07/14/2007 Inactivated Polio Vaccine 09/20/1989,,03/16/1985,01/05,1984 Influenza, Seasonal, Injecta ble, Undefined 04/20/2011 MMR Vaccine 07/29/1992,01/04/1986 Meningococcal Polysaccharide Vaccine (MPSV4) 11/06/2006 OPV 1984 TDAP Vaccine 12/01/2016,07/02/2005 Social History Tobacco Use Types Packs/Day Years Used Date Smoking Tobacco: Never Smokeless Tobacco: Never Tobacco Cessation:Counseling Given: Not Answered Alcohol Use Standard Drinks/Week Comments Not Currently 0 (1 standard drink = 0.6 oz pur e alcohol) Comments No Sex and Gender Information Value Date Recorded Sex Assigned at Not on file Legal Sex Female 12:36 AM CDT Gender Identity Not on file Sexual Orientation Not on file Last Filed Vital Signs Vital Sign Reading Time Taken Comments Blood Pressure 108/58 03/27/2025 8:52 AM CDT Pulse 68 03/27/2025 8:52 AM CDT Temperature 36.8 C (98.2 F) 03/27/2025 8:52 AM CDT Respiratory Rate 16 03/27/2025 8:52 AM CDT Oxygen Saturation 100% 03/27/2025 8:52 AM CDT Inhaled Oxygen Concentration - - Weight - - Height - - Body Mass Index - - Plan of Treatment Upcoming Encounters Date Type Department Care Team (Late st Contact Info) Description 05/10/2025 9:30 AM CDT Office Visit [facility] [address] [place] [address] Edward Quiles MD [address], [address] [address] Health Maintenance Due Date Last Done Comments Pap Smear 2005 Human Papillomavirus (HPV) Immunization (3 - 3-dose series) 10/04/2008 07/12/2008, 07/14/2007 Cervical Cancer Screening (CCS) 2014 HPV/Cotest 2014 Mammogram 03/05/2021 03/05/2020, 03/05/2020 Influenza Immunization (#1) 2025 04/20/2011 SARS-COV-2 Immunization ( season) 2025 06/17/2021, 11/01/2020, 10/04/2020 DTaP/Tdap/Td Immunization (8 - Td or Tdap) 12/01/2026 12/01/2016, 07/02/2005, 09/20/1989, Additional history exists Respiratory Syncytial Virus (RSV) Immunization (Adult) (1 - 1-dose 75+ series) 2059 Meningococcal Immunization (ACWY) Aged Out 11/06/2006 No longer eligible based on patient's age to complete this topic Hepatitis B Immunization Completed 008, 02/21/2007, 11/06/2006 TdaP Immunization Discontinued 12/01/2016, 07/02/2005 Discussion re Starting/Frequency of Mammograms Completed 03/05/2020 Hepatitis C Virus (HCV) Screening Completed 05/11/2024 Pneumococcal Immunization Combined Aged Out No longer eligible based on patient's age to complete this topic Rotavirus Immunization Aged Out No lo nger eligible based on patient's age to complete this topic Procedures Procedure Name Priority Date/Time Associated Diagnosis Comments CULTURE, URINE Routine 03/27/2025 8:49 AM CDT Dysuria POCT UA AUTOMATED W/O MICRO Routine 03/27/2025 8:43 AM CDT Dysuria from Last 3 Months Results * CULTURE, URINE (03/27/2025 8:49 AM CDT) [facility] CULTURE RESULTS No growth final 03/28/2025 5:01 PM CDT [facility] Culture URINE SPECIMEN OBTAINED BY CLEAN CATCH PROCEDURE / Unknown Non-Phlebotomy Collection / Unknown 03/27/2025 8:49 AM CDT 03/27/2025 8:49 AM CDT us Tess Waldrop AUTO TECHNICIAN, SUPERVISOR ELECTRONICS PROCESSING MICROBIOLOGY - GENE RAL ORDERABLES Final Result [facility] [address] [place] [address], [place] * (ABNORMAL) POCT UA AUTOMATED W/O MICRO (03/27/2025 8:43 AM CDT) Pathologist [facility] POC UA SPECIFIC GRAVITY 1.010 URINE PH 7.0 5.0 - 9.0 POC URINE LEUKOCYTES 500 /uL(A) Negative Kimberly/uL POC URINE NITRITE Negative Negative POC URINE PROTEIN Negative Negative mg/dL POC URINE GLUCOSE Norm Negative, Norm mg/dL POC URINE KETONE Negative Negative mg/dL POC URINE UROBILINOGEN Norm Norm, 0.2 E.U./dL (mg/dL), 1 E.U./dL (mg/dL) POC URINE BILIRUBIN Negative Negative mg/dL POC URINE BLOOD INSTRUMENT 50 [place]/uL(A) Negative [place]/uL POC URINE COLOR Light-Yellow POC URINE CLARITY Cloudy Urine 03/27/2025 8:43 AM CDT us Tess Eubanksrentam AUTO TECHNICIAN, SUPERVISOR ELECTRONICS PROCESSING POINT OF CARE TESTI PEDRO LUIS (MANUAL) Final Result from Last 3 Months Insurance MEDICAID [employer] Care Teams Piece Goods Packer Relationship Specialty Start Date End Date Provider, None [place] PCP - General 03/19/25
--- OUTSIDE RECORDS SUMMARY | 2025-03-29 02:54 | XMS_ITS | Clinical Summary ---
Author Organization [facility] Address [address] [place] [address] Care Team Providers Care Supervisor Receiving And Processing Name Role Phone Unavailable Primary Care Provider Unavailabl e Source Comments [facility],non-owned Affiliates and Associated Physician Practices is amultiple site organization consisting of ambulatory clinics and hospital sitesin [place], [place], [place] and [place]. This disclosure is being madepursuant to the Care Everywhere program and may not contain all information available regarding this patient. Last updated 18.[facility] [employer] Social History Tobacco Use Types Packs/Day Years Used Date Smoking Tobacco: Never Assessed Comments Unknown Sex and Gender Information Value Date Recorded Sex Assigned at Not on file Legal Sex Female 6:00 AM SUPERVISOR METALIZING Gender Identity Not on file Sexual Orientation Not on file Plan of Treatment Health Maintenance Due Date Last Done Comments MAMMOGRAM 1984 HIV SCREENING 1999 DTAP/TDAP/TD VACCINES (1 - Tdap) 2003 HEPATITIS B VACCINE (1 of 3 - 19+ 3-dose series) 2003 PAP SMEAR 2005 HPV VACCINE (1 - 3-dose SCDM series) 2011 DEPRESSION SCREENING 07/12/2024 COVID-19 VACCINE ( - 2023-2 5 season) 2025 INFLUENZA VACCINE (#1) 2025 LIPID TESTING 05/11/2029 05/11/2024 ZOSTER VACCINE (1 [...] patient's age to complete this topic Insurance [facility]
--- OUTSIDE RECORDS SUMMARY | 2025-03-29 02:54 | XMS_ITS | Clinical Summary ---
Author Organization [facility] Address [address] [place] [address] Care Team Providers Care Manager Utilization Review Name Role Phone Nevaeh Troncoso MD Primary Care Provider [phone] Allergies No known active allergies Medications FLUoxetine (PROZAC) 10 MG tabletIndication s:DANII (generalized anxiety disorder) Take 1 tablet (10 mg total) by mouth daily. 90 tablet 05/11/2024 Active omeprazole (PRILOSEC) 40 MG capsuleIndicatio ns:Gastroesophag eal reflux disease without esophagitis Take 1 capsule (40 mg total) by mouth daily. 90 capsule 05/11/2024 Active Immunizations Immunization Administration Dates Next Due Tdap (Generic) 12/01/2016 [...] 9:43 AM CDT Height 154.9 cm (5' 1) 05/11/2024 9:43 AM CDT Body Mass Index 20.75 05/11/2024 9:43 AM CDT Plan of Treatment Health Maintenance Due Date Last Done Comments Cervical Cancer Screening Pap Smear (Age 30 to 64) Every 3 Years 1984 HPV Vaccines (3 - 3-dose series) 10/04/2008 07/12/2008, 07/14/2007 PHQ-2 (Physician [place]) 07/12/2024 05/11/2024 COVID-19 Vaccine ( season) 2025 06/17/2021, 11/01/2020, 10/04/2020 Annual Physical 05/11/2025 05/11/2024 Mammogram Screening 05/01/2026 05/01/2024, DTaP, Tdap and Td Vaccines (8 - [...] 5 Years) and At-Risk Patients (6 to 49 Years) Aged Out No longer eligible based [...] VE NON-REACT JEFF 05/12/2024 6:30 PM CDT [facility] Comment: ANTIBODIES TO HCV NOT DETECTED. DOES NOT EXCLUDE THE POSSIBILITY OF EXPOSURE TO HCV. 05/11/2024 11:2 5 AM CDT Nevaeh Troncoso MD LABORATORY Final Result [facility] [address] [place] [address], [id number] * MAMMOGRAM GENERIC (SCAN ORDER) (05/01/2024) Anatomical Region Laterality Modality Other 05/01/2024 [facility] Scanned SCANNING Final Resu lt * PAP SMEAR WITH HPV (12/29/2023) 12/29/2023 [facility] Scanned SCANNING Final Resu lt from Last 3 Months or Most Recently Relevant to Health Maintenance Insurance [facility] [place] Care Teams Manager Utilization Review Relationship Specialty Start Date End Date Nevaeh Troncoso MD [address] [address] PCP - General INTERNAL MEDICINE 03/14/24
--- OUTSIDE RECORDS SUMMARY | 2025-03-29 02:54 | XMS_ITS | Encounter Summary ---
Author Organization [facility] Address [address] [place] [address] Care Team Providers Care Retail Assistant Manager Name Role Phone Roland Roy MD Primary Care Provider [phone] Donta Martinez Primary Care Provider [phone] Rachel Longo MD Unavailable [phone] Encounter Details Date Type Department Care Team (Late st Contact Info) Description 05/27/2020 Telephone [facility] - [facility] [address] [place] [address] Transcribed Order, Provider Social History Tobacco Use Types Packs/Day Years Used Date Smoking Tobacco: Never Smokeless Tobacco: Never Alcohol Use Standard Drinks/Week Comments No 0 (1 standard drink = 0.6 oz pur e alcohol) Comments Unknown Sex and Gender Information Value Date Recorded Sex Assigned at Not on file Legal Sex Female 12:36 PM BUSINESS 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 Gender Identity Not on file Sexual Orientation Not on file documented as of this encounter Plan of Treatment Not on file documented as of this encounter Visit Diagnoses Not on filedocumented in this encounter Care Teams Retail Assistant Manager Relationship Specialty Start Date End Date Rolnad Roy MD [address] [facility] [address] [place] [address] PCP - General Endocrinology Diabetes & Metabolism 05/21/20 12/13/23 Donta Martinez PA [address] [place] [address] PCP - General Family Practice 12/29/23 Rachel Longo MD [address] [place] [address] Referring Physician Obstetrics and Gynecology 12/29/23 documented as of this encounter
--- OUTSIDE RECORDS SUMMARY | 2025-03-29 02:54 | XMS_ITS | Encounter Summary ---
Author Organization [facility] Address [address] [place] [address] Phone Care Team Providers Care Driver Guide Name Role Phone Provider, None Primary Care Provider Unavailabl e Encounter Details Date Type Department Care Team (Late Contact Info) Description 03/28/2025 Results Follow-Up [facility] [place] [address] [place] [address] Sarah Parrish, EARLINE, MATE FIRST [address] [place] [address] POCT UA AUTOMATED W/O MICRO, CULTURE, URINE Social History Tobacco Use Types Packs/Day Years Used Date Smoking Tobacco: Never Smokeless Tobacco: Never Alcohol Use Standard Drinks/Week Comments Not Currently [...] 05/10/2025 9:30 AM CDT Office Visit [facility] [address] [place] [address] Edward Quiles MD [address], [facility] [address] [place] [address] documented as of this encounter Visit Diagnoses Not on filedocumented in this encounter Care Teams Driver Guide Relationship Specialty Start Date End Date Provider, None [place] PCP - General 03/19/25 documented as of this encounter
--- OUTSIDE RECORDS SUMMARY | 2025-03-29 02:54 | XMS_ITS | Clinical Summary ---
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 Gender Identity Not on file Sexual Orientation Not on file Occupation Industry Job Start Date Job End Date [employer] Not on file Not on file Not [...] 9:56 AM CDT Height 157.5 cm (5' 2) 03/15/2019 9:56 AM CDT Body Mass Index 21.03 03/15/2019 9:56 AM CDT Plan of Treatment Health Maintenance Due Date Last Done Comments HEPATITIS B VACCINES (1 of 3 - 19+ 3-dose series) 2003 07/18/2007, 02/21/2007, 11/06/2006 HPV VACCINES (3 - 3-dose series) 10/04/2008 07/12/2008, 07/12/2008, 07/12/2008, Additional history exists DTAP/TDAP/TD VACCINES (2 - T d or Tdap) 07/02/2015 07/02/2005 PAP SMEAR 02/27/2022 02/27/2019, 10/07/2016, 05/20/2016, Additional history exists CERVICAL CANCER SCREENING 02/28/2024 HPV/Cotest (21-29) 02/28/2024 02/27/2019, 1 , 03/04/2016, Additional history exists HPV/Cotest (30-65) 02/28/2024 02/27/2019, 1 , 03/04/2016, Additional history exists BREAST CANCER SCREENING 2024 03/05/2020 INFLUENZA VACCINE (#1) 2025 04/20/2011 Procedures Procedure Name Priority Date/Time Associated Diagnosis [...] ASSESSMENT: BI-RADS CATEGORY 1: Negative. DICTATION LOCATION: [facility] 03/05/2020 12:47 PM CDT DIAGNOSTIC BILATERAL DIGITAL [...] ASSESSMENT: BI-RADS CATEGORY 1: Negative. DICTATION LOCATION: [facility] Celi Marquez DO MAMMO ORDERABLES Final Result * CERV/VAG CYTO SCREEN PAP W/HPV (02/27/2019 5:13 PM CDT) CLINICAL INFORMATION SCREENING 03/01/2019 12:21 PM CDT [facility] REFERENCE LAB LAST MENSTRUAL PERIOD UNK 03/01/2019 12:21 PM CDT [facility] REFERENCE LAB PREV PAP: INFORMATION NOT PROVIDED 03/01/2019 12:21 PM CDT [facility] REFERENCE LAB PREV BX: INFORMATION NOT PROVIDED 03/01/2019 12:21 PM CDT [facility] SOURCE Endocervix 03/01/2019 12:21 PM CDT [facility] ADEQUACY: SEE COMMENT 03/01/2019 12:21 PM CDT [facility] Comment: Satisfactory for evaluation. Endocervical/transformation zone component present. Age and/or menstrual status not provided PAP INTERP Negative for intraepithelial lesion or malignancy. 03/01/2019 12:21 PM CDT [facility] COMMENT This Pap test has been evaluated with computer assisted technology. 03/01/2019 12:21 PM CDT [facility] REFERENCE LAB ROLL ICER MACHINE: SEE COMMENT 2018 12:21 PM CDT [facility] REFERENCE LAB Comment: TMK, CT(ASCP) CT screening location: [place] [address] [place] [address] EXPLANATORY NOTE SEE COMMENT 019 12:21 PM CDT [facility] REFERENCE [facility] Comment: EXPLANATORY NOTE: The Pap [...] of this assay have been determined by [facility]. The modifications have not been cleared or approved by the FDA. This assay has been validated pursuant to the CLIA regulations and is used for clinical purposes. Genital SWAB OF ENDOCERVIX / Unknown Collection / Unknown 02/27/2019 5:13 PM CDT 02/27/2019 6:58 PM CDT Narrative [facility] - 03/01/2019 12:21 PM CDT Performing Organization Information: Site ID: [id number] Name: [facility] Address: [address] [place] [address] Director: Lars Winkler D.O., MPH Site ID: [id number] Name: [facility] Address: [address] [place] [address] Director: Reji Kwon Janet PICHARDO PATHOLOGY/CYTOLOGY ORDER FEDERICO Final Result Performing Organization Address City/State/[facility] Co de Phone Number [facility] [phone] from Last 3 Months or Most Recently Relevant to Health Maintenance Insurance [facility] BLUE ACCESS CHOICE Advance Directives For more information, please contact: [phone] * Full Code (Latest Code Status on File) Date Activated Date Inactivated Comments 01/09/2017 10:54 PM 01/10/2017 8:19 PM * Full Code Date Activated Date Inactivated Comments 01/09/2017 3:06 PM 01/09/2017 10:54 PM Care Teams Needle Felt Making 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
[2025-03-29 02:55] VITALS: BP 135/83; PULSE 71; RESP 18; TEMP 36.5; O2SAT 100
--- NOTE | 2025-03-29 02:58 | ED_ITS ---
HPI - Abdominal Pain General Chief Complaint: Abdominal Pain Stated Complaint: R abd pain/flank pain Time Seen by Provider: 03/29/25 02:57 Source: patient Mode of arrival: ambulatory Limitations: no limitations History of Present Illness HPI narrative: Patient presents with right abdominal/flank pain. Symptoms started on . She has had a borderline fever for approximately 1 week, 99.6 or 99.7 though this resolved after being placed on antibiotic, cipro for UTI. History of stones and interstitial cystitis. No previous abdominal surgerise. LMP started today. Has an OBGyn, though in between doctors (last one was Dr Meneses). She feels constipated/full. History of constipation. She noted her last BM the stool was flat. Has a history of a rectocele. Has never had a colonosocopy. Feels pressure in her abdoman as well as nausea, no vomiting. No bloody stool. Urologist is [facility], Rob, hasn't yet seen them but appointment next week. Related Data Home Medications ?Medication ?Instructions ?Recorded ?Confirmed ?Last Taken ?Type cholecalciferol (vitamin D3) 10 10 mcg PO DAILY 12/12/24 Unknown History mcg (400 unit) tablet (Vitamin D3) multivitamin 1 tablet PO DAILY 11/29/24 0 12/12/24 Unknown History Allergies Allergy/AdvReac Type Severity Reaction Status Date / Time No Known Allergies Allergy Verified 03/29/25 03:04 [facility] Past Medical History Medical History Rectocele Interstitial cystitis Kidney stone Surgical History Surgical History H/O colposcopy with cervical biopsy HPV H/O LEEP benign per pt 15 years ago S/P ear surgery History of mandibular surgery History of bladder surgery Family History Family History Father Thyroid disorder Heart disease Sibling Depression Grandparent Alcoholism Grandparent Alcoholism Cancer Mother Breast cancer, Onset Age: 68 Social History Social History (Updated 03/28/25 @ 09:35 by Denisse Dominguez [facility]) Smoking status: Former smoker Tobacco type: cigarettes Alcohol intake: never Substance use: never Substance use type: does not use Do You Feel Safe in your Home?: Yes Lack of Transportation: No Lack of Food: Never True Current Housing: I Have Housing Concerned About Future Housing: No Difficulty Paying Gas/Electric Bills: No Difficulty Paying for Meds: No Currently Unemployed: No Education: Master's Degree or Higher Difficulty w/ Childcare or Family Care: No Living arrangements: with family Additional living arrangements comments: kid Occupation/Education: occupation Gender identity (if verbalized by the patient): Female Sexual Orientation (if Verbalized by the Patient): Straight or Heterosexual Exam 2 Narrative: GENERAL: Well-appearing, well-nourished, and in no acute distress. HEAD: Normocephalic, atraumatic. EYES: Non injected, non icteric ENT: Nares clear, no rhinorrhea or epistaxis. Gross auditory acuity intact. NECK: Supple. No meningismus. CHEST: Speaking in full sentences. No respiratory distress. HEART: Regular rate and rhythm. . ABDOMEN: Soft, nondistended. No rigidity or guarding. Not peritoneal EXTREMITIES: Normal range of motion. No lower extremity edema. SKIN: Warm, dry, no rash. NEURO: No focal deficits. Alert and oriented. Answering questions. Following commands. Normal speech without aphasia or dysarthria. PSYCH: Normal mood and affect. Course Vital Signs Vital signs: Vital Signs Temperature 97.7 F 03/29/25 02:55 Pulse Rate 71 03/29/25 02:55 Respiratory Rate 18 03/29/25 02:55 Blood Pressure 135/83 03/29/25 02:55 Pulse Oximetry 100 03/29/25 02:55 Oxygen Delivery Room Air 03/29/25 02:55 Temperature 97.7 F 03/29/25 02:55 Pulse Rate 60 03/29/25 05:12 Respiratory Rate 12 03/29/25 05:12 Blood Pressure 103/65 03/29/25 05:12 Pulse Oximetry 100 03/29/25 05:12 Oxygen Delivery Room Air 03/29/25 02:55 MDM - Abdominal Pain MDM Narrative Medical decision making narrative: Patient presents with right abdominal pain as well as flank pain. Abdominal pain described as a pressure. Feels full/constipated. History of interstitial cystitis, currently on cipro for a UTI. In the ED she is afebrile with VS within normal limits. Mild thrombocytosis. Mild hyponatremia. Urinalysis is concerning for urinary tract infection. Also shows hematuria however patient currently menstruating. Patient is currently on ciprofloxacin. Urine culture ordered. test negative. CT scan as below. Patient reports at approximately 4:50 a.m. that her pain is so much better per RN. WIll not change patient's antibiotic regimen at present. Prescribed a bowel regimen given the stool burden seen. Advised follow up. Differential Diagnosis Differential diagnosis: Likely abdominal pain, constipation, diverticulitis (simple or complicated), endometriosis and other (UTI/pyelonephritis; malignancy; ) Lab Data Attestation: I reviewed the patient's lab results. 03/29/25 03:05 03/29/25 03:05 Labs: Lab Results 03/29/25 03/29/25 03/29/25 Range/Units 03:05 03:21 03:22 WBC 8.3 (4.5-10.0) K/mm3 RBC 4.19 L (4.2-5.4) M/mm3 Hgb 12.3 (12.0-15.0) g/dL Hct 37.2 (37.0-47.0) % MCV 88.8 (80-100) fl MCH 29.4 (26-34) pg MCHC 33.1 (32-36) g/dl RDW 12.8 (11.5-14.5) % Plt Count 393 H (150-375) k/mm3 MPV 9.3 (7.4-10.4) fl Immature Gran % (Auto) 0.4 (0-0.5) % Neut % (Auto) 38.2 L (45.5-73.1) % Lymph % (Auto) 50.1 H (18.3-44.2) % Wilkes % (Auto) 7.7 (2.6-8.5) % Eos % (Auto) 2.6 (0-4.4) % Baso % (Auto) 1.0 (0.2-1.2) % Lymph # (Auto) 4.16 H (0.9-3.2) K/mm3 Wilkes # (Auto) 0.6 (0.1-0.6) K/mm3 Eos # (Auto) 0.2 (0-0.3) K/mm3 Baso # (Auto) 0.1 (0.0-0.1) K/mm3 Abs Immat Gran (auto) 0.03 (0.00-0.031) K/mm3 Absolute Neuts (auto) 3.2 (1.3-6.7) K/mm3 Absolute Nucleated RBC 0.000 (0.0-0.012) K/mm3 Nucleated RBC % 0.0 (0.0-0.2) % Sodium 136 L (137-145) mmol/L Potassium 4.1 (3.4-5.0) mmol/L Chloride 104 (98-107) mmol/L Carbon Dioxide 24 (22-30) mmol/L Anion Gap 8 (4-12) mmol/L BUN 12 (7-17) mg/dL Creatinine 0.84 (0.7-1.0) mg/dL Estim Creat Clear Calc 62 ml/min Estimated GFR > 60 (59 - ) Glucose 95 (65-110) mg/dL Calcium 9.0 (8.4-10.2) mg/dL Total Bilirubin 0.2 (0.2-1.3) mg/dL AST 19 (14-36) U/L ALT 15 (6-35) U/L Alkaline Phosphatase 84 (38-126) U/L Total Protein 7.7 (6.3-8.2) g/dL Albumin 4.6 (3.5-5.1) g/dL Lipase 185 (23-300) U/L Urine Color Yellow (Yellow) Urine Appearance Turbid H (Clear) Urine pH 7.5 (5.0-9.0) Ur Specific Lucien 1.013 (1.001-1.035) Urine Protein Trace (Negative) mg/dL Urine Glucose (UA) Negative (Negative) mg/dL Urine Ketones Negative (Negative) mg/dL Ur Blood (Man) 3+ H (Negative) Urine Nitrate Negative (Negative) Urine Bilirubin Negative (Negative) Urine Urobilinogen 0.2 (<2.0) mg/dL Leukocyte Esterase Rfl 2+ H (Negative) MICAELA/UL Urine RBC >100 H (0-2) /hpf Urine WBC 51-100 H (0-3) /hpf Ur Squamous Epith Cells Moderate (Few) /hpf Urine Bacteria 1+ H /hpf Urine Casts 0-2 POC Urine HCG, Qual Negative (Negative) Imaging Data Attestation: I personally reviewed and interpreted this imaging study as follows: My impression: Patient has fair amount of stool particularly in the right lower quadrant/pelvis on my independent interpretation of CT abdomen pelvis Radiologist's impression: ITS Impressions Abdomen/Pelvis CT 03/29/25 08:08 IMPRESSION: 1. No etiology for the patient's symptoms. CT Abd & Pelvis with contrast Stat Rad: No acute abdominal process identified. Mild to moderate fecal loading of the colon is seen. No bowel obstruction. No free air. Discharge Plan Discharge Clinical Impression: UTI (urinary tract infection), Constipation, Bilateral lower abdominal pain Patient Disposition: Home Condition: Stable Instructions: Antibiotic Form, Constipation (DC), Urinary Tract Infection in Women (DC), High Fiber Diet (ED) Additional Instructions: Continue taking the antibiotic you had been prescribed, ciprofloxacin. There is a urine culture in process to see which organism/bacteria grows and confirm that the antibiotic you are currently taking will work for this particularl infection. YOu had evidence of a fair amount of stool burden on your CT scan. Constipation can cause abdominal pain and make you prone to UTIs. His important you maintain your hydration and try to increase the fiber intake in her diet. This can be supplemented with fiber such as Metamucil/psyllium. MiraLax can help as a bowel regimen. If still not having a bowel movement, a laxative such as magnesium citrate may be needed. Keep your upcoming appointment to establish with the urologist that you currently have scheduled. Return to the Emergency Department immediately if the pain worsens, develops fever, persistent and uncontrolled vomiting, or for any new symptoms or concerns. Patient Language: Nicaraguan Prescriptions: New psyllium husk [Metamucil] 0.4 gram capsule 0.4 g PO DAILY PRN (Reason: constipation) Qty: 30 0RF polyethylene glycol 3350 [Miralax] 17 gram/dose powder 17 g PO DAILY Qty: 119 0RF magnesium citrate Solution 150 ml PO DAILY PRN (Reason: constipation) Qty: 296 0RF No Action cholecalciferol (vitamin D3) [Vitamin D3] 10 mcg (400 unit) tablet 10 mcg PO DAILY multivitamin Tablet 1 tablet PO DAILY Follow-up/Referrals: Michelle,ELDA Cruz [Primary Care Provider] Stand Alone Forms: Work/School Release IP Time of Disposition: 04:59
[2025-03-29 03:01] VITALS: BP 126/81; PULSE 87; RESP 18; O2SAT 100
--- OUTSIDE RECORDS SUMMARY | 2025-03-29 03:04 | XMS_ITS | Encounter Summary ---
Author Organization [facility] Address [address] [place] [address] Care Team Providers Care Clinical Trial Specialist Name Role Phone Unavailable Primary Care Provider Unavailabl e Reason for Referral * Consultation (Routine) - Closed Specialty Diagnoses / Procedures Referred By Contac t Referred To Contact Dermatology Diagnoses Multiple atypical skin moles Nevaeh Troncoso MD [address] [address] Phone: tel: fax: [facility] - Dermatology [address] [place] [address] Phone: tel: fax: Referral ID Status Reason Start Date Expiration Date V isits Requested Visits Authorized [id number] Closed Specialty Services Required 05/17/2024 05/17/2025 1 1 LE CLEANER Encounter Details Date Type Department Care Team (Latest Contact Info) Description 05/17/2024 Transcribe Orders [facility] - Centralized Scheduling [address] [place] [phone] Nevaeh Troncoso MD [address] [address] Multiple atypical skin moles Social History Tobacco Use Types Packs/Day Years Used Date Smoking Tobacco: Never Assessed Comments Unknown Sex and Gender Information Value Date Recorded Sex Assigned at Not on file 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
[2025-03-29 03:12] LABS: Hematocrit 37.2 % (37.0-47.0); Hemoglobin 12.3 g/dL (12.0-15.0); Immature Granulocyte Percent A 0.4 % (0-0.5); Lymphocytes Absolute Auto 4.16 K/mm3 (0.9-3.2); Mean Corpuscular HGB Conc 33.1 g/dl (32-36); Mean Corpuscular Hemoglobin 29.4 pg (26-34); Mean Corpuscular Volume 88.8 fl (80-100); Nucleated Red Blood Cells Absolute Auto 0.000 K/mm3 (0.0-0.012); Nucleated Red Blood Cells Perc 0.0 % (0.0-0.2); Platelet Count Result 393 k/mm3 (150-375); Red Blood Count 4.19 M/mm3 (4.2-5.4); White Blood Count 8.3 K/mm3 (4.5-10.0)
[2025-03-29] MEDS: MORPHINE SULFATE (*CRX) 4 MG/ML INJ IV PUSH (03:17)
[2025-03-29] MEDS: ONDANSETRON INJ 4 MG/2 ML VIAL IV PUSH (03:17)
[2025-03-29 03:25] LABS: BEDSIDEPREGUCG Negative (Negative)
[2025-03-29 03:25] LABS: Alanine Aminotransferase 15 U/L (6-35); Albumin Level 4.6 g/dL (3.5-5.1); Alkaline Phosphatase 84 U/L (38-126); Anion Gap 8 mmol/L (4-12); Aspartate Amino Transferase 19 U/L (14-36); Bilirubin,Total 0.2 mg/dL (0.2-1.3); Blood Urea Nitrogen 12 mg/dL (7-17); Calcium 9.0 mg/dL (8.4-10.2); Carbon Dioxide 24 mmol/L (22-30); Chloride 104 mmol/L (98-107); Estimated CRCL calculation 62 ml/min; Estimated Glomerular Filt Rate > 60; Glucose 95 mg/dL (65-110); Lipase 185 U/L (23-300); Potassium 4.1 mmol/L (3.4-5.0); Sodium 136 mmol/L (137-145); Total Protein 7.7 g/dL (6.3-8.2)
[2025-03-29 03:29] LABS: Add Urine Microscopic? YES; Appearance Urine Turbid (Clear); Glucose Urine UA Negative (Negative); Leukocyte Esterase Ur 2+ LEU/UL (Negative); Nitrate Urine Negative (Negative); Non Pathogenic Casts 0-2; Specific Grav Ur 1.013 (1.001-1.035)
[2025-03-29 03:30] VITALS: BP 100/69; PULSE 62; RESP 12; O2SAT 98
[2025-03-29 05:12] VITALS: BP 103/65; PULSE 60; RESP 12; O2SAT 100
== END 2025-03-29 05:09 | disposition home or self-care (01) ==
PROVIDERS: Emergency Provider Student in an Organized Health Care Education/Training Program; PCP Physician Assistant
DX: N39.0 Urinary tract infection, site not specified (principal); K59.00 Constipation, unspecified; R10.32 Left lower quadrant pain; R10.31 Right lower quadrant pain; N30.10 Interstitial cystitis (chronic) without hematuria; Z87.442 Personal history of urinary calculi; Z87.891 Personal history of nicotine dependence
CPT/HCPCS: 36415; 74177; 80053; 81001; 81025; 83690; 85025; 87086; 96374; 96375; 99284; J2270; J2405; Q9967

== ENCOUNTER 2025-05-01 13:28 | Outpatient (CLI) | payer OTHER, SELFPAY ==
--- NOTE | ~2025-05-01 | MMUS_ITS ---
EXAMINATION: MM diagnostic cas BI w sd, US breast LT limited INDICATION: 39-year old female; Evaluation of left breast palpable lump on and off for one year. COMPARISON: 05/01/2024 TECHNIQUE: Digital breast tomosynthesis CC and MLO views of the BILATERAL breast and True lateral and spot compression of the LEFT breast were obtained with computer-aided detection to assist in interpretation of the study. A radiopaque skin marker was placed over the area of LEFT breast palpable lump. FINDINGS: The breasts are extremely dense, which lowers the sensitivity of mammography. There are no suspicious masses, calcifications, architectural distortion or any other abnormality in either breast. No suspicious mammographic abnormality correlates to the radiopaque skin marker. LEFT BREAST ULTRASOUND FINDINGS: Targeted sonographic evaluation of the palpable lump area was completed. There is no sonographic abnormality that correlates to the area of palpable lump identified by the patient. IMPRESSION: No mammographic or sonographic finding correlates to the palpable lump area in the LEFT breast. No mammographic evidence of malignancy in either breast. Recommendations: Clinical management of patient's palpable lump. Annual screening mammography in 12 months. BI-RADS Category 1: Negative Reviewed, dictated and finalized at location B. IMPRESSION: No mammographic or sonographic finding correlates to the palpable lump area in the LEFT breast. No mammographic evidence of malignancy in either breast. Recommendations: Clinical management of patient's palpable lump. Annual screening mammography in 12 months. BI-RADS Category 1: Negative
== END 2025-05-01 13:29 | disposition home or self-care (01) ==
LOC: ANHFOHIMG 13:29
PROVIDERS: PCP Physician Assistant; Visit Provider Surgery
DX: N63.21 Unspecified lump in the left breast, upper outer quadrant (principal); N63.32 Unspecified lump in axillary tail of the left breast
CPT/HCPCS: 76642; 77062; 77066; G0279